=== PATIENT | female | born 1960 | race Caucasian/White ===

== ENCOUNTER 2025-02-23 00:12 | Inpatient (IN) | payer OTHER, SELFPAY ==
[2025-02-22] VITALS (19 sets, daily range): BP systolic 77–118; BP diastolic 53–97; BMI 24.9
[2025-02-22 17:04] LABS: Hematocrit 29.3 % (37.0-47.0); Hemoglobin 9.0 g/dL (12.0-16.0); Mean Corp Hgb Conc. 30.7 g/dL (33.0-37.0); Mean Corpuscular Volume 86.4 fL (81.0-99.0); Nucleated Red Blood Cells % 0 %; Platelet Count 227 10^3/uL (130-400); Red Cell Dist. Width 18.1 % (11.5-14.5)
[2025-02-22 17:29] LABS: Troponin I < 0.012 ng/ml
[2025-02-22 17:57] LABS: ALT (SGPT) 22 U/L (0-35); AST (SGOT) 15 U/L (14-36); Albumin 3.1 g/dl (3.5-5.0); Alkaline Phosphatase 54 U/L (38-126); Blood Urea Nitrogen 14 mg/dl (7-17); Calcium 8.5 mg/dl (8.4-10.2); Carbon Dioxide 36 mmol/L (22-30); Chloride 98 mmol/L (98-107); Glucose 91 mg/dl (70-99); Potassium 3.8 mmol/L (3.5-5.1); Sodium 137 mmol/L (135-145); Total Protein 5.5 g/dl (6.3-8.2); eGFR > 60.00
--- NOTE | 2025-02-22 19:39 | ED.GENMED ---
History of Present Illness
General
Chief Complaint: Swelling
Source: patient and family (Daughter)
Time Seen by Provider: 02/22/25 18:59
History of Present Illness
History of Present Illness:
64-year-old female presents to the emergency room at the advice of Dr. Alexis from [place] [facility]. Patient was at Dr. Alexis's office today for an evaluation to see if she be a candidate for an ablation for atrial fibrillation.
Patient has been feeling poorly for the past 6 months or so when she first developed atrial fibrillation. She was cardioverted once but remained in sinus rhythm for only an hour and so has basically remained in A-fib. Patient is compliant with her
anticoagulation. Patient has had several admissions at [facility] over this time. She has been developing peripheral edema. She has been treated for heart failure. She was most recently discharged from [address] [place] [address] yesterday. During that
admission she was started on digoxin as well as Aldactone. She does use oxygen at home at 3 L. Patient does have a significant history of COPD as well. She has not had a fever. She denies any change to her cough. She denies any urinary symptoms
such as dysuria or frequency.
Phy Exam
Physical Exam
Physical Exam:
General: Awake, Alert, Oriented X3. Appears chronically ill but does not appear to be in any acute distress
Vitals: Tachycardic, hypotensive
Head: Atraumatic
Eyes: Pupils equal, EOMI
Throat: Airway intact, no exudates
Neck: Trachea midline
Lungs: Crackles bilaterally
Heart: Regular rate, no murmurs
Abd: Soft, Nontender, No pulsatile mass
Neuro: Nonfocal
Skin: Warm, dry, no rash
Extremities: pulses equal b/l, 3+ edema
Scores
Heart Failure Risk
Heart Failure Risk Score: Yes
History of Stroke or TIA: No
History of intubation for respiratory distress: No
Heart rate on ED arrival >/= 110: Yes
SaO2 <90% on arrival on room air: Yes
HR >/=110 during 3min walk test (or too ill to perform test): Yes
ECG has acute ischemic changes: No
Urea >/=12mmol/L (BUN 33.6mg/dL): No
Serum CO2>/=35mmol/L: Yes
Troponin I or T elevated to VA Level (0.4mg/dL): No
NT-proBNP >/=5,000ng/L (5,000pg/ml): Yes
HF Risk Score: 6
Admission Status: VERY HIGH RISK 55.3% Consider admission to hospital
Course
Orders/Labs/Results
Orders:
Orders
02/22/25 16:40
EKG [Electrocardiogram (*1)] Urgent
Reason for Study: Shortness of Breath
02/22/25 16:41
EKG- Treatment ONCE
02/22/25 16:51
Complete Blood Count/With Diff Urgent
Comprehensive Metabolic Panel Urgent
Digoxin Urgent
Comment: ADD ON
Ferritin Urgent
Folate Urgent
Comment: ADDON
Iron Urgent
Comment: ADD ON
NT-proBNP Urgent
Total Iron Binding Urgent
Troponin I Urgent
Vitamin B12 Urgent
02/22/25 19:37
Add On- LAB Urgent
Tests Added?: digoxin level
02/22/25 19:38
CR Chest Portable - 1 View Urgent
Comment:
Reason For Exam: sob, hypotensive
Reason Study Needs to be Portable: Patient Unstable
02/22/25 19:58
CT Abd/pelvis W Iv Cont Urgent
Comment:
Reason For Exam: abd distension, hypotension
02/22/25 20:37
Furosemide [Lasix] 20 mg IV NOW STA
02/22/25 22:24
NG Tube [GI tube insertion- Treatment] ONCE
02/22/25 22:31
Midazolam HCl [Versed] 2 mg IV NOW STA
02/22/25 22:59
Lidocaine 2% [Lidocaine Uro-Jet 2%] 1 syringe .ROUTE .STK-MED ONE
02/22/25 23:51
Digoxin [Lanoxin] 250 mcg IV NOW STA
02/23/25 00:02
Add On- LAB Routine
Tests Added?: iron, ferritin, tibc, folate, vit b12
Admit/Transfer Patient As Directed
Co-Sign Provider:
Level of Care: Inpatient admission
Assign to:: IMU- Intermediate Care
Physician / Group: Oscar
Diagnosis: CHF, A-Fib, GOO
Reason for Hospitalization: NG Tube, A-Fib management
Expected length of stay greater than two midnights?: Yes
ELOS- Estimated Length of Stay in days: 3
I certify the patient meets the requirements for IP care: Yes
PRN Pain Medication Management As Directed
May give lesser potent ordered pain med per pt: Yes
preference::
Protocol:: Medication orders for pain may be administered in a
manner that supports deferring to patient preference
when the pt is:
- Requesting an ordered lesser potent pain medication.
Least to most potent pain medications are defined
as: acetaminophen < NSAID < tramadol < opioids
(morphine, oxycodone, hydromorphone).
- Requesting a lesser dose of the same medication IF
ORDERED.
- Requesting a less intrusive route of administration
if both routes are prescribed by the provider (PO <
IV).
02/23/25 00:03
Code Status As Directed
Resuscitation Status: Full Code
02/23/25 01:25
Acetaminophen [Tylenol/Feverall] 650 mg RECTAL Q4HPRN PRN
HYDROmorphone [Dilaudid] 0.25 mg IV Q3HPRN PRN
02/23/25 01:25
CARDIOLOGY CONSULT Routine
Consulting Provider: John Wilson
Was physician already notified: Yes
Consult Notification Routine
Specialty to Notify: Gastroenterology
GASTROINTESTINAL CONSULT Routine
Consulting Provider: Steff Fischer
Was physician already notified: No
Reason for consult: Gastric Outlet Obstuction, Gastric/Duodenal Mass
SURGICAL CONSULT Routine
Consulting Provider: Matthew Sotomayor
Was physician already notified: Yes
Activity As Directed
Activity Level: Out of Bed-Early Mobility
With Assistance
Gastrointestinal Tubes As Directed
Type: [place] sump
To suction?: Yes
Type of suction: Low intermittent
Irrigate tube?: No
I&O [Intake/ Output] As Directed
Frequency: q12h
Obtain Records As Directed
Dates of Information to be Released: Jan 2025
Type of Information Requested: Discharge Summary
ECG/Cardiology Results
If Other, list type of info requested: Echocardiogram
Obtain Records from: [facility]
Vital Signs As Directed
Frequency: Per unit guidelines
Weight As Directed
Frequency: Daily
DX Deep Vein Thrombosis Video Routine
02/23/25 Breakfast
NPO
Allow oral meds: No
Allow clear liquids: No
NPO with Ice Chips: Yes
Comment: OK to give oral disintegrating tablet
Basic Metabolic Panel IN AM
Complete Blood Count/No Diff IN AM
Magnesium IN AM
TSH Reflex To Free T4 IN AM
02/23/25 08:00
Risperidone Disintegrating [Risperdal M-Tab (Orally Disintegrating)] 0.5 mg PO BID
02/23/25 12:00
Digoxin [Lanoxin] 125 mcg IV NOON
02/23/25 18:00
Enoxaparin Sodium [Lovenox] 40 mg SC QPM
Abnormal Lab Results
02/22/25
16:51
RBC 3.39 L 10^6/uL
(4.20-5.40)
Hgb 9.0 L g/dL
(12.0-16.0)
Hct 29.3 L %
(37.0-47.0)
MCH 26.5 L pg
(27.0-31.0)
MCHC 30.7 L g/dL
(33.0-37.0)
RDW 18.1 H %
(11.5-14.5)
Abs Immat Gran (auto) 0.2 H 10^3/uL
(0-0.05)
Absolute Monos (auto) 1.4 H 10^3/uL
(0.1-0.6)
Immature Gran % 2.0 H %
(0-0.5)
Lymphocytes % 17.6 L %
(20.5-51.1)
Monocytes % 15.2 H %
(1.7-9.3)
Carbon Dioxide 36 H mmol/L
(22-30)
Iron 35 L ug/dl
(37-170)
% Saturation 9 L %
(20-50)
Total Bilirubin 0.1 L mg/dl
(0.2-1.3)
Total Protein 5.5 L g/dl
(6.3-8.2)
Albumin 3.1 L g/dl
(3.5-5.0)
Digoxin 0.4 L ng/ml
(0.8-2.0)
02/22/25 16:51
02/22/25 16:51
Vital Signs
Initial and Last Documented VS:
Initial Vital Signs
Temp Pulse Resp BP Pulse Ox
98.3 F 122 20 86/68 96
02/22/25 16:29 02/22/25 16:29 02/22/25 16:29 02/22/25 16:29 02/22/25 16:29
Last Documented Vital Signs
Temp Pulse Resp BP Pulse Ox
98.3 F 103 20 87/73 97
02/22/25 16:29 02/23/25 00:45 02/23/25 00:45 02/23/25 00:45 02/23/25 00:45
MDM/Problems Addressed
Differential Diagnosis Includes:
Exacerbation of heart failure, anemia, electrolyte abnormality, intravascular depletion
MDM/Problems Addressed:
Patient sent to the emergency room for low blood pressure. Clinically she looks more fluid overloaded. Noted to have crackles and has significant peripheral edema however no to be relatively hypotensive. Systolics low but her maps have mostly
been above 65. No echo available at this time. From a cardiology standpoint I discussed the patient's presentation with Dr. Griselda Wilson. He recommends low-dose IV Lasix. They will see the patient in the morning and evaluate a medication
modifications. On chest x-ray the patient noted to have a markedly dilated stomach. CT obtained to further evaluate this. CT shows severely distended stomach with suspicion of a mass at the antrum or first portion of the duodenum. Communicated
with Dr. Ale burrows who is on-call for general surgery. He recommends NG tube. This was placed with return of 450 cc of material. Patient will be admitted for further evaluation of all the above.
*Radiology
Radiology exam reviewed: preliminary read by ED provider (My interpretation of the patient's portable chest x-ray is no significant lung disease, significant gastric distention) and radiology read reviewed
*Pulse Oximetry
SaO2: 95
Nasal Cannula flow liters per minute: 3
Patient hypoxic: yes
*EKG
Interpreted by ED Provider?: Yes
Interpretation: normal
Heart Rate: 95
Rate: normal
Rhythm: atrial flutter
Economy: normal axis
Interval: normal interval
QRS Pattern: normal QRS
Ischemia: non-specific ST changes
*[employer] Operator Interpretation
Rate: normal
Interpretation: abnormal
Rhythm: atrial flutter
*Critical Care Note
Total Time (30-74mins, 75-104mins- exclusive of procedures): 44 min
comment:
Critical care statement: A total of 44 minutes of critical care time was provided for this patient. This includes management of unstable vital signs, evaluation of the patient at bedside, reviewing the patient's pertinent medical records, discussion
with consultants, review of old EKGs and review of pertinent medical records. This time with separate from time utilized to perform the aforementioned documented procedures
ED Attending Note
-
Portions of this chart may have been created with voice recognition software.� Occasional wrong word or��sound alike� substitutions may have occurred due to the inherent limitations of voice recognition software.
Discharge Plan
Departure
Patient Disposition: Admit
Date of Disposition: 02/22/25
Time of Disposition: 22:23
Admit to: IMU
Presentation/result/management discussed w/ accepting MD/DO: Hospitalist
Condition: Fair
Discharge Problem:
CHF (congestive heart failure), Partial gastric outlet obstruction
Interventions
Interventions:
*Risk Screen - Suicide Last Done: 02/22/25 16:29
*General Assessment Last Done: 02/22/25 16:29
*Neglect/Abuse Screening Last Done: 02/22/25 19:07
*ED COVID-19 Vaccine History Last Done: 02/22/25 16:29
*Nursing Disposition Last Done: 02/23/25 01:37
ED- Cardiac Assessment Last Done: 02/22/25 19:07
ED- Pulmonary Assessment Last Done: 02/22/25 19:07
ED-Skin Assessment Last Done: 02/22/25 19:07
[2025-02-22 20:14] LABS: Digoxin 0.4 ng/ml (0.8-2.0)
[2025-02-22] MEDS: LASIX 20 MG IV (21:24)
[2025-02-22] MEDS: VERSED 2 MG IV (22:47)
--- NOTE | 2025-02-22 23:47 | HPS.HSE ---
Addendum entered and electronically signed by Morris Moore DO 02/23/25 00:35:
Patient seen and examined independently. Agree with findings and plan as set forth by Jaci Young PA-C.
Patient is a 64y F with PMH significant for CHF, A-Fib / Flutter and COPD / chronic hypoxemia who presents to ED from Cardiology office (Dr. Bauer) for evaluation of decompensated CHF. Patient has been hospitalized multiple times at [facility] in the
past several weeks for decompensated HF. She has uncontrolled A-Fib / Flutter and was referred to EP at for evaluation given poor tolerance of A-Fib / recurrent CHF. Patient was discharged from [facility] yesterday and presented to Cardiology office
today. Upan arrival there, she was appreciated to be in decompensated HF and was referred to the ED for admission.
Patient has A-Fib / Flutter with variable heart rates from 100-130. Her BP is 'soft' in the 80s-90s systolic - which her sister states is fairly typical.
Patient has also had significant abdominal distention recently - and there was some concern that this might reflect ascites given her right-sided HF symptoms.
Ass:
Acute on Chronic HFpEF
Persistent Atrial Fibrillation / Flutter with Rapid Ventricular Response
Borderline Hypotension
COPD with Chronic Hypoxemic Respiratory Failure
Gastric Outlet Obstruction
Bipolar Disorder
Hypothyroidism
Plan:
Admit to IMU for further evaluation and treatment.
IV Lasix x 1 dose given in the ED.
IV Dig x 1 dose on admission. Continue digoxin daily via IV route for now.
Cardiology consulted for additional recommendations / management.
Obtain recent records (including Echo done yesterday) from [facility].
Holding all PO meds acutely given concurrent GI issues.
NG placed in the ED. Maintain on LIMS overnight.
Follow for improvement in abdominal distention.
CT done in the ED today shows dilated stomach and ? small mass along gastric antrum.
GI consulted for further evaluation - ? eventual EGD once cardiac issues are stabilized.
Continue supplemental O2 (3lpm at baseline).
Continue usual inhaled medications.
Original Note:
Family Physician
-
Family Physician: Praveena Hilliard
Chief Complaint
-
Heart Failure
History of Present Illness
Patient is a 64 y/o female past medical history of heart failure, atrial fibrillation/flutter, and COPD on home oxygen who was sent from the cardiology office for low blood pressure and volume overload. Patient was initially diagnosed with atrial
fibrillation about 6 months. She has felt unwell since that time. Attempts were made previously for cardioversion but patient quickly went back into atrial fibrillation. She was recently admitted to [facility] for acute heart failure, and
discharged yesterday to keep her previously scheduled appointment with Dr. Alexis from to discuss possible ablation. During the visit today patient was hypotensive with significant lower extremity edema and she was sent to the emergency
department for evaluation.
While is the ED patient was noted to have distended abdomen and CXR raised concern for gastric distention. Abd/Pelvis CT scan showed evidence of severe gastric distention with questionable mass.
Medical History
Past Medical History
Past Medical History: Reports Other
Additional Past Medical History:
Chronic HFpEF
Persistent Atrial Fibrillation
Chronic Hypoxic
COPD
Hypothyroidism
Bipolar Disorder
Past Surgical History: Reports Other
Additional Past Surgical History:
Bunionectomy
Social History
Tobacco: Former Smoker
Family History
Family History: Not pertinent
Allergies / Home Medications
Allergies reflects when Allergies were last updated in [employer].
Home Medications with original date entered in [employer]
Allergy/Medication List:
Allergies
Allergy/AdvReac Type Severity Reaction Status Date / Time
No Known Allergies Allergy Verified 02/22/25 16:39
Home Medications
apixaban 5 mg tablet (Eliquis) 5 mg PO BID 02/22/25
atorvastatin 10 mg tablet 10 mg PO Daily 02/22/25
cholecalciferol (vitamin D3) 50 mcg (2,000 unit) tablet 50 mcg PO DAILY 02/22/25
digoxin 125 mcg (0.125 mg) tablet 0.125 mg PO DAILY 02/22/25
diltiazem HCl 300 mg capsule,extended release 24 hr 300 mg PO DAILY 02/22/25
divalproex 500 mg tablet,delayed release 500 mg PO BID 02/22/25
dofetilide 250 mcg capsule 250 mcg PO Q12 02/22/25
furosemide 20 mg tablet 20 mg PO DAILY 02/22/25
levalbuterol tartrate 45 mcg/actuation aerosol inhaler 2 puff inhalation Q8HPRN PRN shortness of breath 02/22/25
levothyroxine 112 mcg tablet 112 mcg PO DAILY 02/22/25
metoprolol succinate 100 mg tablet,extended release 24 hr 100 mg PO BID 02/22/25
pantoprazole 40 mg tablet,delayed release 40 mg PO BID 02/22/25
polyethylene glycol 3350 17 gram/dose oral powder 17 g PO DAILYPRN PRN constipation 02/22/25
spironolactone 25 mg tablet 25 mg PO DAILY 02/22/25
umeclidinium 62.5 mcg-vilanterol 25 mcg/actuation powdr for inhalation 1 inh inhalation DAILY 02/22/25
Review of Systems
-
Unable to obtain full review of systems at this time due to: Acuity
History Source: Family
Physical Exam
Vital Signs
Vital Signs
Temp Pulse Resp BP Pulse Ox
98.3 F 130 28 91/72 93
02/22/25 16:29 02/22/25 23:00 02/22/25 23:00 02/22/25 23:00 02/22/25 23:00
Physical Exam
General: No Apparent Distress and Appears Chronically Ill
HEENT: Anicteric, Moist mucous membranes, Oxygen (Nasal Cannula) and Other (NG Tube in Place)
Respiratory: Decreased Breath Sounds (Poor Inspiratory Effort)
Cardiac: S1/S2, Irregular Rhythm and Tachycardia
GI: Tender (Mild throuhgout) and Distended
Rectal: Deferred by Provider
Genito-urinary: Clear Urine (Noted in canister at bedside)
Musculoskeletal: No Clubbing, No Cyanosis and Other (+3 pitting edema bilateral lower extremities)
Skin: Warm and Dry
Neuro: Cranial Nerves Intact and Sedated (Patient received Versed prior to my evaluation)
Laboratory Results
-
02/22/25 16:51
02/22/25 16:51
Laboratory Results
Total Bilirubin 0.1 mg/dl (0.2-1.3) L 02/22/25 16:51
AST 15 U/L (14-36) 02/22/25 16:51
ALT 22 U/L (0-35) 02/22/25 16:51
Alkaline Phosphatase 54 U/L (38-126) 02/22/25 16:51
Troponin I < 0.012 ng/ml 02/22/25 16:51
Data Reviewed
-
CT Scan: Report Reviewed by me
Lab Data: Labs Reviewed by me
Old Records: Requested
Impression/Plan
-
Acute on Chronic Heart Failure
-Consult Cardiology
-Attempt to obtain Echocardiogram result from [facility]
-Patient received one dose of Lasix in ED, but remains hypotension - Hold on further diuretics for now
-Monitor Is&Os and Daily Weights
Persistent Atrial Fibrillation with Rapid Ventricular Response
-Consult Cardiology
-Give digoxin 0.25mg IV x one dose Now
-Continue digoxin 0.125mg IV Daily
-Eliquis on hold with NG tube in place
Gastric Outlet Obstruction
-Abd/Pelvis CT scan raises concern for small mass along gastric antrum vs duodenum
-NGT placed in ED
-Continue NPO
-General Surgery consult by ED
-Consult GI
Chronic Hypoxia
-Continue supplemental oxygen at 3L via nasal cannula
COPD, no acute exacerbation
-Continue Anoro Ellipta
Bipolar Disorder
-Continue Risperdal oral disintegrating tablet
-Hold Depakote until able to resume oral meds
Hypothyroidism
-Continue levothyroxine
DVT proph: Lovenox until able to resume oral Eliquis
Code Status: Full Code
[2025-02-23] VITALS (33 sets, daily range): BP systolic 77–118; BP diastolic 61–89; BMI 24.0
[2025-02-23] MEDS: LANOXIN 250 MCG IV (00:16)
[2025-02-23 00:19] LABS: Iron 35 ug/dl (37-170)
[2025-02-23 00:29] LABS: Total Iron Binding Capacity 371 ug/dl (265-497)
[2025-02-23 01:07] LABS: Ferritin 18.3 ng/ml (11.1-264.0)
[2025-02-23 01:39] LABS: Folate > 20.0 ng/ml (2.76-20); Vitamin B12 423 pg/ml (239-931)
[2025-02-23 03:38] LABS: Hematocrit 29.0 % (37.0-47.0); Hemoglobin 9.2 g/dL (12.0-16.0); Mean Corp Hgb Conc. 31.7 g/dL (33.0-37.0); Mean Corpuscular Volume 88.1 fL (81.0-99.0); Platelet Count 226 10^3/uL (130-400); Red Cell Dist. Width 18.2 % (11.5-14.5)
[2025-02-23 04:08] LABS: Blood Urea Nitrogen 16 mg/dl (7-17); Calcium 8.5 mg/dl (8.4-10.2); Carbon Dioxide 36 mmol/L (22-30); Chloride 98 mmol/L (98-107); Estimated Creatinine Clearance 55 ml/min; Glucose 98 mg/dl (70-99); Magnesium 2.4 mg/dl (1.6-2.3); Potassium 4.0 mmol/L (3.5-5.1); Sodium 138 mmol/L (135-145); eGFR > 60.00
[2025-02-23] MEDS: LANOXIN 125 MCG IV ×2 (04:19→12:02)
--- NOTE | 2025-02-23 05:05 | PTCARENOTE ---
Received verbal report from COSME Diop. Pt arrived to unit via stretcher. afib on monitor, hr 90-110s at time of admission. SpO2 95% on 3L NC. Lungs diminished at the bases on auscultation and scattered crackles throughout. NGT in place to LIMS. PW
in place draining yellow urine. Pt afib w/ RVR, hr 110-140s. Pt asymptomatic. Vitals and assessment as documented. HEENA Peñaloza notified and Rx received for IV Digoxin (see MAR). Pt resting in bed with call greenberg in reach.
--- NOTE | 2025-02-23 05:22 | W.PN.UPDATE ---
Update Note
Progress Note Update
Patient is a- fib with Hr 130s to 140s, BP 95/72, asymptomatic. One time order of Digoxin 125mcg was given. Hr still sustainable 130s-140s, Cardiology regulatory affairs consultant contacted and new recommendation received of IV Lopressor 5mg.
[2025-02-23] MEDS: LOPRESSOR 5 MG IV ×2 (05:31→08:34)
--- NOTE | 2025-02-23 05:37 | PTCARENOTE ---
Pt afib on the monitor, hr sustaining 130-140s. COLLECTION ADVISOR notified and order received for IV Lopressor (see MAR).
--- NOTE | 2025-02-23 07:34 | W.PN.CARDCBS ---
Addendum entered and electronically signed by Kev Nye MD 02/23/25 10:28:
I saw and examined the patient.
The Fitting Room Maintenance Mechanic's note was reviewed and I agree with the note.
Comment: Briefly, 64-year-old woman past medical history of atrial fibrillation/flutter with rapid ventricular response and heart failure with preserved ejection fraction presents in rapid atrial flutter and acute heart failure
Plan to diurese with IV Lasix. Will increase to 40 mg twice daily.
Follow renal function closely
Ideally would have standing weights
Repeat echo here to reassess LV function
Remains in rapid atrial flutter. Marginal blood pressure limits options for rate control. Goal heart rate less than 110 bpm.
Continue home digoxin
Plan to start amiodarone for adjunct rate control following Tikosyn washout
Resume anticoagulation. Patient currently with NG tube for decompression. Will start heparin drip with transition back to home Eliquis once able to take oral meds.
Original Note:
Today's Communication / Plan
-
Lasix 20 mg IV x1 now
Tikosyn washout and then start amiodarone PO
If HRs difficult to control might need to add amiodarone gtt for adjunct rate control
Restart OAC pending surgical evaluation, patient had abd u/s and MRI at [facility] in the last month
Impression / Plan
-
PCP: Praveena Hilliard
Cardiology: Dr. Aguero
EP: Dr. Bauer
Impression:
Presented with A-fib/typical flutter and RVR and acute HF 02/22/2025
Recent admission to [facility] for acute HF and rapid A-fib, loaded with digoxin 02/20/2025 until 02/21/2025
Recent admission to [facility] for abdominal distention, A-fib and acute HF 02/07/2025 until 02/10/2025
Recent admission to [facility] for A-fib and acute HF, likely had COVID just prior to this admission and had also been started on Tikosyn prior to this admission, 01/25/25 until 01/27/25
Recent admission to [facility] for newly diagnosed A-fib and acute HF 12/08/2024 until 12/14/2024
Acute HFpEF
Paroxysmal atrial fibrillation and typical flutter with RVR
Abnormal CT abdomen suggesting small enhancing mass along the wall of the gastric antrum 02/22/2025
MRI abdomen at [facility] that showed dilated stomach without mention of enhancing lesions, small pancreatic cysts and no evidence of biliary dilatation or choledocholithiasis 02/08/2025
s/p MRCP that was negative for CBD stone at [facility] 01/2025
NGT placed in ER 02/22/25
Oxygen dependent COPD
Former smoker, quit 07/2024
COVID infection 11/2024
s/p thyroidectomy, hypothyroidism
h/o HTN
Hyperlipidemia
Bipolar disorder
Echo 12/08/2024: [facility] study, EF 60 to 65%, enlarged RV with moderately reduced systolic function, severe RA/LA dilatation, trivial to mild MR, severe TR with PAP 50 mmHg, no AAS
DANIEL 12/12/2024: [facility] study, EF 60 to 65%, severely enlarged RV, no evidence of DIANNA thrombus, mild MR, mild to moderate TR with PAP 21 mmHg
Plan:
-Patient came to [facility] ER yesterday with acute HF and cardiology is now consulted. Patient was being evaluated in the cardiology office in the [facility] yesterday, this was a new patient visit for EP consultation for persistent A-fib and
consideration of ablation. As noted above the patient has had 4 admissions to [facility] since November. It looks like patient was initially admitted to [facility] in November with A-fib as a new diagnosis and acute HF, patient had successful DANIEL/CV at that time, but
recurred with A-fib soon after. Patient was admitted to [facility] again at the end of December with recurrent A-fib and acute HF and on my review of [facility] records it appeared that in between her November admission and December admission she had COVID and was
started on Tikosyn, but still recurred with A-fib requiring admission 01/25/2025. Looks like patient was diuresed during that admission and was discharged to home on her usual dose of Tikosyn 250 mcg BID. Patient was admitted to [facility] again from
02/07/2025 until 02/10/2025 with chest pain that they treated as COPD and abdominal distention that led to MRI/MRCP of the abdomen that was negative for CBD stone and there is no mention of soft tissue masses in the stomach at that time, patient was
again diuresed and discharged to home. Patient was admitted to [facility] again 02/20/2025 until 02/21/2025 with recurrent A-fib and acute HF, during that admission they loaded her with digoxin and continued her usual dose of Tikosyn. It sounds as though
the patient was anxious for her outpatient EP evaluation and was discharged from the hospital 02/21/2025 and then came to our office at the [facility] on 02/22/2025 and acute HF and was referred to the ER.
-ECG reviewed by me looks like typical atrial flutter with RVR. Telemetry reviewed by me looks more like atrial fibrillation with RVR
-Patient has had at least 4 admissions to [facility] since November and now presents to [facility] for her 5th admission, but this is her first admission at our hospital. Her records in [facility] were reviewed in detail and summarized above by me.
-Patient has persistent A-fib/flutter with RVR likely contributing to acute HF which may be causing her abdominal distention as well.
-Patient was started on Tikosyn 11/2024, but this has been generally ineffective in maintaining SR and so this medication has been stopped, last dose 02/22/2025 AM. Following washout recommend starting amiodarone 400 mg TID.
-Overnight rate control efforts were relatively ineffective, patient was given digoxin 375 mcg IV on top of her outpatient dose of 125 mcg daily. Digoxin level 0.4 on 02/22/2025, labs reviewed by me.
-Patient then ordered Lopressor 5 mg IV PRN 02/03/2025 AM with minimal improvement in HR. May need to add amiodarone gtt for adjunct rate control.
-Outpatient dose of Eliquis 5 mg BID is on hold due to possible small enhancing mass along the gastric antrum seen on CT 02/22/2025, would like to resume OAC pending general surgery evaluation taking into consideration the other workup that patient
has had at [facility] over the last month for symptoms of abdominal distention. NGT in place since admission.
-Plan is for eventual rhythm control, but patient noted to have severe biatrial dilatation on last echo 12/08/2024.
-Patient examines in acute HF. Last echo I can find was from 12/08/2024 and EF was 60 to 65%, recheck echo today, ordered by me
-Weight is down 5 lbs overnight with Lasix 20 mg IV x 1. Patient was taking Lasix 20 mg PO daily prior to admission.
-Patient examined in volume overload and needs more diuresis, but is limited by hypotension. Lasix 20 mg IV x 1 now, ordered by me and pending diuretic response, echo and BP response will need to consider RHC. Patient had RHC at [facility] on 12/14/2024
and PCWP was 19 with CI 2.5.
-Right heart changes on echo could be due to underlying oxygen dependent COPD
Progress Note - Information Security Director
Subjective
Date of Service: February 23, 2025
Ongoing SOB
Objective
Labs:
02/23/25 03:06
02/23/25 03:06
Labs
Hgb 9.2 g/dL (12.0-16.0) L 02/23/25 03:06
Hct 29.0 % (37.0-47.0) L 02/23/25 03:06
Plt Count 226 10^3/uL (130-400) 02/23/25 03:06
Sodium 138 mmol/L (135-145) 02/23/25 03:06
Potassium 4.0 mmol/L (3.5-5.1) 02/23/25 03:06
BUN 16 mg/dl (7-17) 02/23/25 03:06
Creatinine 0.8 mg/dL (0.6-1.0) 02/23/25 03:06
Glucose 98 mg/dl (70-99) 02/23/25 03:06
Digoxin 0.4 ng/ml (0.8-2.0) L 02/22/25 16:51
Troponins
02/22/25
16:51
Troponin I < 0.012
Vital Signs and I&O:
Vital Signs
Temp Pulse Resp BP Pulse Ox
98.2 F 142 21 95/73 96
02/23/25 01:38 02/23/25 05:31 02/23/25 05:00 02/23/25 05:31 02/23/25 05:00
Vital Signs
Temp Pulse Resp BP Pulse Ox
98.2 F 142 21 95/73 96
02/23/25 01:38 02/23/25 05:31 02/23/25 05:00 02/23/25 05:31 02/23/25 05:00
Intake & Output
02/21/25 02/22/25 02/23/25 02/24/25
06:59 06:59 06:59 06:59
Intake Total 0 / 0
Output Total 1650 / 1650
Balance -1650 / -1650
Physical Exam
Physical Exam
GEN: NAD
HEENT: EOMI, MMM
LUNGS: 3 L NC. Decreased BS throughout without wheeze
CV: Afib with RVR on tele. Irreg, no murmur
ABD: Mildly distended. Soft, BS+
EXT: +3 B/L LE edema
NEURO: Gross non-focal
SKIN: No rash
[2025-02-23] MEDS: SPIRIVA RESPIMAT 2.5 MCG 2 PUFF INH (07:55)
[2025-02-23] MEDS: STRIVERDI RESPIMAT 2 PUFF INH (07:55)
[2025-02-23] MEDS: LASIX 20 MG IV (09:20)
[2025-02-23] MEDS: RISPERDAL M-TAB (ORALLY DISINTEGRATING) 0.5 MG PO ×2 (09:20→19:43)
--- NOTE | 2025-02-23 09:42 | CON.GI ---
Addendum entered and electronically signed by Steff Lopez Do, MD 02/23/25 16:03:
I saw and examined the patient.
The TECHNICAL PROJECT MANAGER's note was reviewed and I agree with the note.
Comment: Jessika is a 64yo W wtih h/o COPD on 2L home O2, CHF and bipolar who was sent to ER from cardiology office for concerns of heart failure and afib with RVR. GI consulted for abd distension and abnormal CT scan with possible GOO. She has
lost 30lbs over past year. She has some regurgitation and nausea. She denies nsaid use recently but did in the past. Vitals stable exam frail chronically ill appearing abd bloated no guarding. NGT without output. Labs reviewed CT AP and AXR
reviewed severe gastric distension and large fecal volume
Impression
- Gastric distension and GOO
ddx includes ulcer malignancy or severe motility dysfunction from stool burden
- GERD
- Iron def anemia
- COPD on 2L home oxygemn
- CHF
- Bipolar
- Hypothyroidism
Recommendations
- NGT monitor output
- Recommend IV protonix BID
- Serial H/H
- Hold lucila would benefit from EGD once washed out and more medically optimized
- Appreciate surgical and cardiology recs
- Ducolax supp x1 now
- Would also benefit from OP colonoscopy
Will follow with you
Original Note:
Consultation
-
Date/Time Consultation Requested: 02/23/25 0125
Date/Time Consultation Performed: 02/23/25 0940
Requesting Provider: Jaci Young PA-C
Performing Provider: HEENA Arango, Steff Fischer MD
Reason for Consultation: gastric outlet obstruction, possible gastric mass
Medical History
Chief Complaint / HPI
Chief Complaint: nausea.vomiting
History of Present Illness:
Pt is a 64yo with hx multiple medical problems including, afib/flutter newly diagnosed with newly started an DANIEL/CV, CHF, COPD with home O2, hypoxemia, bipolar disorder, overactive bladder, hypothyroidism, thyroidectomy, with recent prolonged
admissions at [facility]. Per patient she was admitted mid November til December with ICU admission with intubation, CHF, COPD exacerbation, afib (new), PNA, covid and psych med adjustment. Per cardiology noted she was noted with abdominal distention
and had MRI/MRCP during admission neg for stone and no mention of gastric mass but distention. She now presents 02/22 from cardiology office. On admission she is noted with concern for heart failure, afib with RVR with HR in 140-150's, and
hypoxemia. CT A/p was completed with moderate left lobe PNA, severe gastric distention with question of enhancing mass along gastric antrum vs duodenum t/c EGD vs UGI. Asked to see for findings. Labs on admission notable for hbg 9 with iron
deficiency (chronic per patient), albumin 3.1, normal LFT's, proBNP 5980, TSH 17.4 with normal T4.
In review with patient she admits to marked wt loss of over 30 lbs. She admits to dysphagia, GERD with vomiting variable amount over last 3 weeks mostly bilious material with food at times. She has diffuse abdominal bloating and pressure. She
also admits to diarrhea and constipation altenating with some blood and black in stools at times. No hx EGD and last colonoscopy 10 + years ago. She admits to chronic NSAID use for years but changed to Tylenol about 1 year ago.
Past Medical History
Past Medical History: Arrhythmias (afib), CHF, COPD, Hypothyroidism, Psychiatric (bipolar disorder ) and Other (hypoxemia, overactive bladder )
Past Surgical History: Other (bunionectomy, botox to bladder, thyroidectomy)
Social History
Tobacco: Former Smoker (quit in September )
Alcohol: Occasional
Drug: None
Living: Alone
Employment: Retired
Family History
Family History: Other (mother with gallbladder problems, no family hx GI cancers )
Allergies / Home Medications
Allergy/AdvReac Type Severity Reaction Status Date / Time
No Known Allergies Allergy Verified 02/22/25 16:39
�Medication �Instructions �Recorded
apixaban 5 mg tablet (Eliquis) 5 mg PO BID 02/22/25
atorvastatin 10 mg tablet 10 mg PO Daily 02/22/25
cholecalciferol (vitamin D3) 50 50 mcg PO DAILY 02/22/25
mcg (2,000 unit) tablet
digoxin 125 mcg (0.125 mg) tablet 0.125 mg PO DAILY 02/22/25
diltiazem HCl 300 mg 300 mg PO DAILY 02/22/25
capsule,extended release 24 hr
divalproex 500 mg tablet,delayed 500 mg PO BID 02/22/25
release
dofetilide 250 mcg capsule 250 mcg PO Q12 02/22/25
furosemide 20 mg tablet 20 mg PO DAILY 02/22/25
levalbuterol tartrate 45 2 puff inhalation Q8HPRN PRN 02/22/25
mcg/actuation aerosol inhaler shortness of breath
levothyroxine 112 mcg tablet 112 mcg PO DAILY 02/22/25
metoprolol succinate 100 mg 100 mg PO BID 02/22/25
tablet,extended release 24 hr
pantoprazole 40 mg tablet,delayed 40 mg PO BID 02/22/25
release
polyethylene glycol 3350 17 17 g PO DAILYPRN PRN constipation 02/22/25
gram/dose oral powder
spironolactone 25 mg tablet 25 mg PO DAILY 02/22/25
umeclidinium 62.5 mcg-vilanterol 1 inh inhalation DAILY 02/22/25
25 mcg/actuation powdr for
inhalation
risperidone 0.5 mg disintegrating 0.5 mg PO Q12H 02/23/25
tablet
Review of Systems
-
History Source: Patient
Constitutional: Reports Weight Loss and Fatigue
EENT: Reports No Symptoms
Respiratory: Reports Trouble Breathing
Cardiac: Reports Chest Pain
Abdomen/GI: Reports Abdominal Pain (with bloating )
: Reports No Symptoms
Musculoskeletal: Reports No Symptoms
Neurological: Reports Weakness
Endocrine: Reports No Symptoms
Hematologic/Lymphatic: Reports Bleeding
Vital Signs
Temp Pulse Resp BP Pulse Ox
98.2 F 138 26 118/80 97
02/23/25 01:38 02/23/25 09:20 02/23/25 08:24 02/23/25 09:20 02/23/25 08:24
Physical Exam
Exam
General: Other (awake and alert with some dyspnea at rest )
HEENT: Normocephalic and Anicteric
Respiratory: Other (decreased bases, dyspnea at rest )
Cardiac: Irregular Rhythm (tachy)
GI: Soft, Tender (minimal ) and Distended
Musculoskeletal: No Clubbing and No Cyanosis
Skin: Warm and Dry
Neuro: Awake, Alert and AO x 3
Psych: Calm
Results
WBC 9.6 10^3/uL (4.8-10.8) 02/23/25 03:06
Hgb 9.2 g/dL (12.0-16.0) L 02/23/25 03:06
Hct 29.0 % (37.0-47.0) L 02/23/25 03:06
MCV 88.1 fL (81.0-99.0) 02/23/25 03:06
Plt Count 226 10^3/uL (130-400) 02/23/25 03:06
Absolute Neuts (auto) 6.0 10^3/uL (1.4-6.5) 02/22/25 16:51
Sodium 138 mmol/L (135-145) 02/23/25 03:06
Potassium 4.0 mmol/L (3.5-5.1) 02/23/25 03:06
Chloride 98 mmol/L (98-107) 02/23/25 03:06
Carbon Dioxide 36 mmol/L (22-30) H 02/23/25 03:06
BUN 16 mg/dl (7-17) 02/23/25 03:06
Creatinine 0.8 mg/dL (0.6-1.0) 02/23/25 03:06
Calcium 8.5 mg/dl (8.4-10.2) 02/23/25 03:06
Total Bilirubin 0.1 mg/dl (0.2-1.3) L 02/22/25 16:51
AST 15 U/L (14-36) 02/22/25 16:51
ALT 22 U/L (0-35) 02/22/25 16:51
Alkaline Phosphatase 54 U/L (38-126) 02/22/25 16:51
Diagnostic Image Results:
02/22/25 CT Abd/pelvis W Iv Cont
Moderate left lower lobe consolidation and airspace disease concerning for pneumonia.
Severe gastric distention. Questionable small enhancing mass along the wall of the gastric antrum versus duodenum. This could further be evaluated by direct visualization or nonurgent upper GI examination.
Mild infrarenal abdominal aortic ectasia measuring 3 cm.
Mild diverticulosis.
Findings suggesting mild volume overload or third spacing.
Prior GI Procedures:
EGD: none
Colonoscopy: 10 years ago
Assessment / Plan
-
Pt is a 64yo with hx multiple medical problems including, afib/flutter newly diagnosed with newly started an DANIEL/CV, CHF, COPD with home O2, hypoxemia, bipolar disorder, overactive bladder, hypothyroidism thyroidectomy with recent prolonged
admissions at [facility]. Per patient she was admitted mid November til December with ICU admission with intubation, CHF, COPD exacerbation, afib (new), PNA, covid and psych med adjustment. Per cardiology noted she was noted with abdominal distention
and had MRI/MRCP during admission neg for stone and no mention of gastric mass but gastric distention . She now presents 02/22 from cardiology office. On admission she is noted with concern for heart failure, afib with RVR with HR in 140-150's,
and hypoxemia. CT A/p was completed with moderate left lobe PNA, severe gastric distention with question of enhancing mass along gastric antrum vs duodenum t/c EGD vs UGI. Asked to see for findings. Labs on admission notable for hbg 9 with iron
deficiency (chronic per patient), albumin 3.1, normal LFT's, proBNP 5980, TSH 17.4 with normal T4. In review with patient she admits to marked wt loss of over 30 lbs. She admits to dysphagia, GERD with vomiting variable amount over last 3 weeks
mostly bilious material with food at times. She has diffuse abdominal bloating and pressure. She also admits to diarrhea and constipation altenating with some blood and black in stools at times. No hx EGD and last colonoscopy 10 + years ago. She
admits to chronic NSAID use for years but changed to Tylenol about 1 year ago.
-abdominal distention with nausea/vomiting CT concern for marked severe gastric distention with question of enhancing mass along gastric antrum vs duodenum
-reported MRI 2 weeks ago with similar gastric distention at [facility]
-alternating diarrhea and constipation
-rectal bleeding red and blood in stools
-anemia with iron deficiency
-afib with RVR
-acute heart failure
-multiple recent admission at [facility] with with ICU admission with intubation, COPD exacerbation, CHF, afib (new), PNA, covid and psych med adjustment
other med problems:
COPD- O2 dependent
Former smoker recently quit
COVID infection 11/2024
s/p thyroidectomy, hypothyroidism TSH 17.4 and T4 normal 1.56
h/o HTN
Hyperlipidemia
Bipolar disorder
overactive bladder
PLAN:
Etiology of severe gastric distention with obstruction related to mass vs other
reviewed imaging with Dr. Mckenna with marked distention
will check follow up X ray for progression of contrast, will do at bedside as persistent HR 150's.
minimal stool in rectum and sigmoid so hold enema for now
t/c eventual UGI vs EGD-- when medically optimized
cont NGT decompression-- 450ml out in ER and minimal out since admission to floor
Eliquis hold and to start heparin gtt
trend hbg
IV iron
NPO
add PPI IV BID
await records from [facility]
appreciate cardiology eval for management of Afib and CHF with diuresis and rate control
pt will also need eventual OP colonoscopy
-
-
Thank you for consultation and allowing me to participate in the patient's care. Please call the occupational therapy supervisor GI physician during the after hours with any questions or concerns.
[2025-02-23] MEDS: HEPARIN 25000 UNITS/250 ML IV (10:06)
[2025-02-23 10:18] LABS: APTT 32.9 Sec (23.4-35.0)
--- NOTE | 2025-02-23 11:06 | CON.GS ---
Addendum entered and electronically signed by Vadim Mckenna MD 02/23/25 16:16:
I was physically present and personally performed the ku portions of the surgical evaluation and/or procedure with the resident. I discussed the findings, reviewed the resident�s note, and confirmed the medical decision-making. I provided direct
supervision as required and agree with the assessment and plan as documented with the following additions/corrections:
HPI: 64-year-old female with multiple medical comorbidities including A-fib on Eliquis, HFpEF, COPD on home oxygen, hypertension, hyperlipidemia, bipolar disorder and anxiety. History predominantly obtained through patient's sister as patient is
generally a poor historian with her medical details. She has apparently had 3 months history of intermittent belching, increased abdominal distention and occasional vomiting of brown liquid material. It has particularly progressed over the past
couple months. Milder symptoms have likely been present for even longer than 3 months. She has never gotten to the point of following up with a porcelain enameler. She has been in and out of the hospital at [facility] for predominantly heart
related issues.
Continues to pass flatus, she has had intermittent bowel movements on generally a regular basis. She states that she had a dark stool the other day that was different than previously.
Past medical history as outlined above. She has no past abdominal surgical history.
AF A-fib with RVR; low normal blood pressure
NAD AAO x 3 resting comfortably in hospital bed
ABD: Enlarged, protuberant and distended but not tense. Mild generalized tenderness but no rebound rigidity or guarding.
Tympany on percussion throughout.
NG tube in place, flushed, scant output
CT imaging personally reviewed and interpreted. Large distended stomach occupying significant portion of patient's abdominal cavity predominantly filled with what appears to be food-like material mixed with liquid. No pneumatosis of the stomach
lining. No free air. Transition point appears to be at level of pylorus.
Assessment/plan: 64-year-old female with gastric outlet obstruction resulting in severe gastric distention and possible enhancing mass noted at the junction of the pylorus/duodenal bulb.
NG tube decompression and bowel rest; there is little NG tube output is likely due to the thick consistency of gastric digested material.
Hopefully with continued flushing and time NG tube function for decompression will improve
Ultimately patient will need both further radiographic and endoscopic evaluations for etiology to gastric outlet obstruction which could include both benign as well as malignant etiologies
Discussed with patient
Discussed with patient's sister as well via speaker phone call
Reviewed with GI COMBAT SYSTEMS OPERATOR
Original Note:
Consultation
-
Date/Time Consultation Requested: 02/23/2025 1:25
Date/Time Consultation Performed: 02/23/2025 9:30
Requesting Provider: Jaci Young
Performing Provider: Vadim Mckenna
Reason for Consultation: Gastric distention due to obstructive mass
Medical History
-
Chief Complaint: Hypotension, Volume overload, gastric distention
History of Present Illness:
Patient is a 64-year-old female with a past medical history of paroxysmal atrial fibrillation on Eliquis, HFpEF, COPD on home oxygen, hypertension, hyperlipidemia, bipolar disorder, and anxiety, and a past surgical history of bunion removal, who
presented from for hypotension and volume overload noted during her cardiology appointment.
She has had multiple readmissions to [facility] since 12/08/2024, primarily for complications related to atrial fibrillation and acute decompensated heart failure. During her second most recent admission (02/07/202502/10/2025), abdominal distension
was noted and workup reportedly performed.
In the ED, she was again noted to have a distended abdomen. She reports 3 months of progressive belching and intermittent vomiting of brown, liquid material. Reportedly she has felt like �her insides were coming out between her legs�. She also
describes intermittent sharp pain localized to the left side of the abdomen, lasting from 20 minutes to up to a day. Alternating constipation and diarrhea also noted. She denies GERD symptoms, though her sister notes of patient�s frequent use of
Protonix and antacids. She denies fever, shortness of breath, or chest pain. Last bowel movement was yesterday.
CT abdomen/pelvis showed severe gastric distension with stomach filled with fluid and presumed food material. Enhancing mass noted along the gastric antrum or duodenal bulb.
Past Medical History
Past Medical History: Arrhythmias (Paroxysmal Atrial Fibrillation), CHF (HFpEF), COPD (on home oxygen therapy), HTN, Hypercholesterolemia and Other (Chronic Bipolar Disorder, Anxiety)
Past Surgical History: Orthopedic (Bunion removal)
Social History
Tobacco: Former Smoker
Alcohol: Occasional
Drug: None
Personal:
Living: Alone
Employment: Retired
Family History
Family History: Other (Gallstones issues, GERD)
Allergies / Home Medications
Allergy/AdvReac Type Severity Reaction Status Date / Time
No Known Allergies Allergy Verified 02/22/25 16:39
�Medication �Instructions �Recorded �Confirmed �Type
apixaban 5 mg tablet (Eliquis) 5 mg PO BID 02/22/25 02/22/25 History
atorvastatin 10 mg tablet 10 mg PO Daily 02/22/25 02/22/25 History
cholecalciferol (vitamin D3) 50 50 mcg PO DAILY 02/22/25 02/22/25 History
mcg (2,000 unit) tablet
digoxin 125 mcg (0.125 mg) tablet 0.125 mg PO DAILY 02/22/25 02/22/25 History
diltiazem HCl 300 mg 300 mg PO DAILY 02/22/25 02/22/25 History
capsule,extended release 24 hr
divalproex 500 mg tablet,delayed 500 mg PO BID 02/22/25 02/22/25 History
release
dofetilide 250 mcg capsule 250 mcg PO Q12 02/22/25 02/22/25 History
furosemide 20 mg tablet 20 mg PO DAILY 02/22/25 02/22/25 History
levalbuterol tartrate 45 2 puff inhalation Q8HPRN PRN 02/22/25 02/22/25 History
mcg/actuation aerosol inhaler shortness of breath
levothyroxine 112 mcg tablet 112 mcg PO DAILY 02/22/25 02/22/25 History
metoprolol succinate 100 mg 100 mg PO BID 02/22/25 02/22/25 History
tablet,extended release 24 hr
pantoprazole 40 mg tablet,delayed 40 mg PO BID 02/22/25 02/22/25 History
release
polyethylene glycol 3350 17 17 g PO DAILYPRN PRN constipation 02/22/25 02/22/25 History
gram/dose oral powder
spironolactone 25 mg tablet 25 mg PO DAILY 02/22/25 02/22/25 History
umeclidinium 62.5 mcg-vilanterol 1 inh inhalation DAILY 02/22/25 02/22/25 History
25 mcg/actuation powdr for
inhalation
risperidone 0.5 mg disintegrating 0.5 mg PO Q12H 02/23/25 02/23/25 History
tablet
Review of Systems
-
History Source: Patient
A 10 point review of systems was completed, and was negative except as per HPI.
Physical Exam
Vital Signs
Temp Pulse Resp BP Pulse Ox
98.2 F 138 26 118/80 97
02/23/25 01:38 02/23/25 09:20 02/23/25 08:24 02/23/25 09:20 02/23/25 08:24
02/22/25 02/23/25 02/24/25
06:59 06:59 06:59
Actual Weight 59.5 kg
Body Mass Index (BMI) 24.0
Lab Results
02/23/25 03:06
02/23/25 03:06
WBC 9.6 10^3/uL (4.8-10.8) 02/23/25 03:06
Hgb 9.2 g/dL (12.0-16.0) L 02/23/25 03:06
Hct 29.0 % (37.0-47.0) L 02/23/25 03:06
Plt Count 226 10^3/uL (130-400) 02/23/25 03:06
Abs Immat Gran (auto) 0.2 10^3/uL (0-0.05) H 02/22/25 16:51
Neutrophils % 63.5 % (42.2-75.2) 02/22/25 16:51
Physical Exam
General: No Apparent Distress
HEENT: Other (attached to NGT and nasal cannula)
Respiratory: Other (Bibasalar crackles)
Cardiac: S1/S2, Irregular Rhythm and Other (Tachycardic)
GI: Tender (LUQ), Distended and Other (Firm, Tympanic)
Skin: Warm
Neuro: AO x 3
Psych: Calm
Data Reviewed
-
CT Scan: Image Personally Visualized and interpreted (by attending surgeon), Report Reviewed by me (and by attending surgeon) and Discussed with Patient (by attending surgeon)
Assessment / Plan
-
Impression:
#Gastric Distention secondary to obstructive mass
Given the patient�s massive gastric distension with an as-yet unidentified cause of obstruction, gastric decompression and further gastrointestinal evaluation needed before considering surgical intervention. At this time, immediate surgery does not
appear to be warranted, thus will hopefully give time for patient's clinical status to improve in the mean time.
-Continue NGT decompression
-pending GI evaluation
-DVT prophylaxis: Heparin
-PPI
-pain management
-medical management per primary care team
[2025-02-23] MEDS: NSS (PRESERVATIVE FREE) 10 ML IV ×2 (12:05→19:43)
[2025-02-23] MEDS: PROTONIX IV 40 MG IV ×2 (12:05→19:43)
--- NOTE | 2025-02-23 12:12 | CM ---
Initial Assessment Completed by JEFFERY Bro.
Patient lives alone in at [facility] with all amenities on one level. Patient uses NO DME, has Oxygen at home using 3 liters (since Dec 2024) as well as a Concentrator and portable oxygen through [employer].
Patient is currently with [facility] now to monitor her CHF, was hospitalized 2x in the last few weeks so services were limited, but would like to continue when she goes home. JEFFERY Bro will make the Home Care referral to them.
PCP: Praveena Gutierrez
[facility] (#[phone])
Patient has her sister on the phone who is very involved in her care and who will provide transportation for the patient. Patient is here for CHF & Afib plus has a NG tube for now.
PLAN: Home with Home Care
[2025-02-23] MEDS: LOPRESSOR 2.5 MG IV ×2 (12:35→16:15)
[2025-02-23] MEDS: CORDARONE 518 MG IV (12:53)
--- NOTE | 2025-02-23 13:14 | W.PN.HOSP.TC ---
Today's Communication/Plan
-
Continue with IV Lasix
IV amiodarone started
Anticoagulation with heparin infusion
Abdominal imaging
Assessment / Plan
Assessment / Plan
Acute on Chronic HFpEF
-Status post 20 mg of IV Lasix earlier today. Still 1 L of urinary output
-Monitor Is&Os and Daily Weights
-Agree with Lasix 40 mg twice daily. Requested nursing monitoring.
-Monitor blood pressure closely. Surrounding soft blood pressure at times. May require pressure support.
-Monitor creatinine closely. Elevated proBNP noted.
Paroxysmal atrial fibrillation with rapid ventricular response
- Patient received IV Lopressor and IV digoxin overnight without any improvement in heart rate.
- Plan to start patient on IV amiodarone infusion
- Continue digoxin 0.125mg IV Daily. Digoxin level 0.4.
- Started on IV heparin as Eliquis remains on hold.
Gastric Outlet Obstruction
-Abd/Pelvis CT scan raises concern for small mass along gastric antrum vs duodenum
-NGT placed in ED
-Continue NPO
-Monitor NG tube output. Repeat abdominal x-ray today.
-Start PPI
-Consult GI/surgery
Chronic Hypoxia
-Continue supplemental oxygen at 3L via nasal cannula
COPD, no acute exacerbation
-Continue Anoro Ellipta
Bipolar Disorder
-Continue Risperdal oral disintegrating tablet if possible
-Hold Depakote until able to resume oral meds
Sub clinical hypothyroidism
Status post thyroidectomy
- Once able to take p.o. may need to adjust Synthroid dose
Iron deficiency anemia
- IV iron started
DVT proph: IV heparin
Code Status: Full Code
Anticipated Discharge: > 48 hours
Subjective/Interval History
-
Date of Service: February 23, 2025
Denies any abdominal pain or discomfort currently
Remains in atrial fibrillation with rapid ventricular response
States of lower extremity edema
He denies any chest pain no palpitations currently
States she was able to eat up until yesterday without any difficulty.
States she had a dark-colored bowel movement yesterday
Objective Data
-
Labs:
Laboratory Results
02/23/25 02/23/25 02/23/25
03:06 09:55 16:05
WBC 9.6
Hgb 9.2 L
Hct 29.0 L
Plt Count 226
APTT 32.9 Pending
Sodium 138
Potassium 4.0
Chloride 98
Carbon Dioxide 36 H
BUN 16
Creatinine 0.8
Glucose 98
Calcium 8.5
Vital Signs:
Vital Signs
Temp Pulse Resp BP Pulse Ox
98.2 F 145 23 108/82 97
02/23/25 01:38 02/23/25 12:35 02/23/25 11:00 02/23/25 12:35 02/23/25 11:00
I&O
02/22/25 02/23/25 02/24/25
06:59 06:59 06:59
Intake Total 0 / 0
Output Total 1650 / 1650 1750 / 1750
Balance -1650 / -1650 -1750 / -1750
Physical Exam
-
General: No Apparent Distress and Conversant; Negative Slurred Speech
HEENT: Normocephalic, Atraumatic, Moist Mucous Membranes and Oxygen
Respiratory: Clear to Auscultation (Anterior)
Cardiac: S1/S2, Irregular Rhythm and Tachycardic; Negative Murmur, Rub or Gallop
GI: Soft, Nontender, Normal Bowel Sounds, Distended and Other (NG tube noted); Negative Organomegaly
Rectal: Deferred by Provider
Musculoskeletal: No Clubbing, No Cyanosis, Edema, Right Lower Extrem and Edema, Left Lower Extrem
Skin: Negative Rash
Neuro: Awake, AO x 3, No Motor Deficits and Nonfocal/Grossly Intact
Psych: Calm
Data Reviewed
-
Total Time Spent with Patient (in minutes): 55
[2025-02-23] MEDS: LASIX 40 MG IV (15:29)
[2025-02-23] MEDS: FERRLECIT 110 MG IV (15:29)
[2025-02-23] MEDS: DULCOLAX 10 MG RECTAL (16:17)
[2025-02-23 16:55] LABS: APTT 67.4 Sec (23.4-35.0)
--- NOTE | 2025-02-23 17:59 | PTCARENOTE ---
Patient AAOx3, forgetful when anxious. Call greenberg on for safety. NGT patent and to LIS per orders. HR sustaining afib 140-150 most of shift, MDs aware, amio gtt started today, See PRNs and MAR for rate control efforts. BPs soft but stable. 3L NC,
sats 97%. Patient with 2BMs, brown with small red streak, GI and surgery team aware. Heparin gtt started today. Patient c/o anxiety at times, notified and awaiting home ativan to be ordered. Patient making needs known. Will continue to closely
monitor.
[2025-02-23] MEDS: TYLENOL/FEVERALL 650 MG RECTAL (19:57)
[2025-02-23] MEDS: VALIUM INJECTION 1 MG IV (19:57)
[2025-02-23 20:06] LABS: Hepatitis C Antibody Negative (Negative)
[2025-02-23 23:29] LABS: APTT 97.6 Sec (23.4-35.0)
[2025-02-24] VITALS (25 sets, daily range): BP systolic 76–118; BP diastolic 60–96; BMI 21.6
[2025-02-24] MEDS: LANOXIN 125 MCG IV ×2 (01:31→12:04)
--- NOTE | 2025-02-24 01:36 | PTCARENOTE ---
Patient remains in afib 120s-160s. Amio gtt infusing with soft bps 76/62 with map of 60. Amio gtt placed on hold per order parameters and telephone sex worker provider made aware. 1x dose of digoxin ordered and administered and ok to continue amio gtt with maps
above 65. If maps drop then order will be placed for pressor. Will continue to monitor.
--- NOTE | 2025-02-24 04:30 | W.PN.UPDATE ---
Update Note
Progress Note Update
HR continues 120-160 atrial fibrillation with amiodorone infusion. Dose of Digoxin 125 mcg IV given. She momentarily dropped to 80s but rebounded back to higher rate. BP 90/60. Heparin infusion continues. NG tube flushes easily output minimal clear
fluid.
[2025-02-24 05:41] LABS: APTT 59.3 Sec (23.4-35.0)
[2025-02-24 06:01] LABS: ALT (SGPT) 17 U/L (0-35); AST (SGOT) 16 U/L (14-36); Albumin 3.0 g/dl (3.5-5.0); Alkaline Phosphatase 51 U/L (38-126); Blood Urea Nitrogen 14 mg/dl (7-17); Calcium 7.9 mg/dl (8.4-10.2); Carbon Dioxide 32 mmol/L (22-30); Chloride 98 mmol/L (98-107); Estimated Creatinine Clearance 63 ml/min; Glucose 93 mg/dl (70-99); Magnesium 2.4 mg/dl (1.6-2.3); Potassium 4.1 mmol/L (3.5-5.1); Sodium 134 mmol/L (135-145); Total Protein 5.5 g/dl (6.3-8.2); eGFR > 60.00
--- NOTE | 2025-02-24 06:24 | PTCARENOTE ---
Patient remains in afib with rates 120s-160s. After administration of digoxin x1 heart rate dropped to the 80s and went back into the high rate. BPs soft at times but maps remained above 65. Continues on amio and heparin gtt. NGT to LIWS with 100
clear output. Hypoactive bowel sounds but abdomen less distended per patient. Patient had a small formed hard bowel movement on the commode. No nausea/ vomiting. Patient anxious to get NGT out so she could eat again. Emotional support provided. Will
continue to monitor.
[2025-02-24] MEDS: STRIVERDI RESPIMAT 2 PUFF INH (08:03)
[2025-02-24] MEDS: SPIRIVA RESPIMAT 2.5 MCG 2 PUFF INH (08:03)
[2025-02-24] MEDS: LASIX 40 MG IV (08:06)
[2025-02-24] MEDS: RISPERDAL M-TAB (ORALLY DISINTEGRATING) 0.5 MG PO ×2 (08:06→19:25)
[2025-02-24] MEDS: PROTONIX IV 40 MG IV ×2 (08:07→19:25)
[2025-02-24] MEDS: NSS (PRESERVATIVE FREE) 10 ML IV ×2 (08:07→19:25)
--- NOTE | 2025-02-24 10:03 | W.PN.GI.CBS2 ---
Today's Communication / Plan
-
Plan for upper GI with small bowel follow-through
MOM enema today
Assessment / Plan
-
Pt is a 64yo with hx multiple medical problems including, afib/flutter newly diagnosed with newly started an DANIEL/CV, CHF, COPD with home O2, hypoxemia, bipolar disorder, overactive bladder, hypothyroidism thyroidectomy with recent prolonged
admissions at [facility]. Per patient she was admitted mid November til December with ICU admission with intubation, CHF, COPD exacerbation, afib (new), PNA, covid and psych med adjustment. Per cardiology noted she was noted with abdominal distention
and had MRI/MRCP during admission neg for stone and no mention of gastric mass but gastric distention . She now presents 02/22 from cardiology office. On admission she is noted with concern for heart failure, afib with RVR with HR in 140-150's,
and hypoxemia. CT A/p was completed with moderate left lobe PNA, severe gastric distention with question of enhancing mass along gastric antrum vs duodenum t/c EGD vs UGI. Asked to see for findings. Labs on admission notable for hbg 9 with iron
deficiency (chronic per patient), albumin 3.1, normal LFT's, proBNP 5980, TSH 17.4 with normal T4. In review with patient she admits to marked wt loss of over 30 lbs. She admits to dysphagia, GERD with vomiting variable amount over last 3 weeks
mostly bilious material with food at times. She has diffuse abdominal bloating and pressure. She also admits to diarrhea and constipation altenating with some blood and black in stools at times. No hx EGD and last colonoscopy 10 + years ago. She
admits to chronic NSAID use for years but changed to Tylenol about 1 year ago.
-abdominal distention with nausea/vomiting CT concern for marked severe gastric distention with question of enhancing mass along gastric antrum vs duodenum
-reported MRI 2 weeks ago with similar gastric distention at [facility]
-alternating diarrhea and constipation
-rectal bleeding red and blood in stools
-anemia with iron deficiency
-afib with RVR
-acute heart failure
-multiple recent admission at [facility] with with ICU admission with intubation, COPD exacerbation, CHF, afib (new), PNA, covid and psych med adjustment
other med problems:
COPD- O2 dependent
Former smoker recently quit
COVID infection 11/2024
s/p thyroidectomy, hypothyroidism TSH 17.4 and T4 normal 1.56
h/o HTN
Hyperlipidemia
Bipolar disorder
overactive bladder
PLAN:
Etiology of severe gastric distention with obstruction/GOO most likely related to possible mass as noted on CT in the gastric antrum or duodenum versus PUD. Findings concerning for possible neoplasm given that she also had 30 pound weight loss
recently and also has iron deficiency anemia
Heart rates are still elevated and she was started on amiodarone also and is still on heparin and may not be stable for EGD yet
Discussed with surgery will get an upper GI with contrast through the NG tube
abdominal pain and distention have improved status post NG tube drainage, no further drainage through the NG after flushing, may need to be advanced the tip of the NG seems to be in the fundus
Continue PPI twice daily
Continue IV iron infusions
Continue heparin for now since she has no evidence of GI bleed
She also has constipation noted on x-ray which may be making her obstruction worse will give her milk of molasses enema and when able to tolerate p.o. can start MiraLAX
Subjective
Subjective
Date of Service: February 24, 2025
NG tube with minimal drainage but x-ray from yesterday also shows the tip of the NG tube coiled in the fundus, looks like she also had a small BM today. She says her abdominal pain though has markedly improved. Also noted events she was also
having tachycardia with rapid A-fib and was started on amiodarone also
Objective
Data Reviewed
Laboratory Data:
Laboratory Results
02/24/25 05:18
Laboratory Results
APTT 59.3 Sec (23.4-35.0) H 02/24/25 05:18
Phosphorus 4.1 mg/dl (2.5-4.5) 02/24/25 05:18
Magnesium 2.4 mg/dl (1.6-2.3) H 02/24/25 05:18
Total Bilirubin 0.5 mg/dl (0.2-1.3) 02/24/25 05:18
AST 16 U/L (14-36) 02/24/25 05:18
ALT 17 U/L (0-35) 02/24/25 05:18
Alkaline Phosphatase 51 U/L (38-126) 02/24/25 05:18
Vital Signs and I&O:
Vital Signs
Temp Pulse Resp BP Pulse Ox
98.4 F 145 26 104/84 99
02/24/25 07:52 02/24/25 08:07 02/24/25 08:07 02/24/25 06:00 02/24/25 08:16
I&O
02/23/25 02/24/25 02/25/25
06:59 06:59 06:59
Intake Total 0 / 0 440.4 / 440.4
Output Total 1650 / 1650 3900 / 3900
Balance -1650 / -1650 -3459.6 / -3459.6
Physical Exam
Physical Exam
Cardiology: Irregular Rate/Rhythm and Other (Tachycardic)
Pulmonary: Clear
GI: Soft and Other (Mildly distended with minimal tenderness in the upper abdomen she does have good bowel sounds though)
[2025-02-24] MEDS: CORDARONE 518 MG IV (10:04)
--- NOTE | 2025-02-24 10:16 | W.PN.CARDCBS ---
Today's Communication / Plan
-
HR remains rapid
Increased amio gtt rate
Start IV Lopressor standing
Impression / Plan
-
PCP: Praveena Hilliard
Cardiology: Dr. Aguero
EP: Dr. Bauer
Impression:
Presented with A-fib/typical flutter and RVR and acute HF 02/22/2025
Recent admission to [facility] for acute HF and rapid A-fib, loaded with digoxin 02/20/2025 until 02/21/2025
Recent admission to [facility] for abdominal distention, A-fib and acute HF 02/07/2025 until 02/10/2025
Recent admission to [facility] for A-fib and acute HF, likely had COVID just prior to this admission and had also been started on Tikosyn prior to this admission, 01/25/25 until 01/27/25
Recent admission to [facility] for newly diagnosed A-fib and acute HF 12/08/2024 until 12/14/2024
Acute HFpEF
Paroxysmal atrial fibrillation and typical flutter with RVR
Abnormal CT abdomen suggesting small enhancing mass along the wall of the gastric antrum 02/22/2025
MRI abdomen at [facility] that showed dilated stomach without mention of enhancing lesions, small pancreatic cysts and no evidence of biliary dilatation or choledocholithiasis 02/08/2025
s/p MRCP that was negative for CBD stone at [facility] 01/2025
NGT placed in ER 02/22/25
Oxygen dependent COPD
Former smoker, quit 07/2024
COVID infection 11/2024
s/p thyroidectomy, hypothyroidism
h/o HTN
Hyperlipidemia
Bipolar disorder
Echo 12/08/2024: [facility] study, EF 60 to 65%, enlarged RV with moderately reduced systolic function, severe RA/LA dilatation, trivial to mild MR, severe TR with PAP 50 mmHg, no AAS
DANIEL 12/12/2024: [facility] study, EF 60 to 65%, severely enlarged RV, no evidence of DIANNA thrombus, mild MR, mild to moderate TR with PAP 21 mmHg
RHC at [facility] on 12/14/2024: PCWP 19 with CI 2.5.
Plan:
Remains in rapid atrial flutter. Remains NPO with NG tube in place.
Marginal blood pressure limits options for rate control. Goal heart rate less than 110 bpm, but will likely need to tolerate higher HR in the near term.
Increase amio gtt to 1 mg/min
Continue IV digoxin
Low dose IV lopressor standing with hold parameters
Heparin drip with transition back to home Eliquis once able to take oral meds.
Continue IV Lasix at 40 mg twice daily
Follow renal function closely
Ideally would have standing weights
Repeat echo here to reassess LV function
Patient came to [facility] ER yesterday with acute HF and cardiology is now consulted. Patient was being evaluated in the cardiology office in [facility] yesterday, this was a new patient visit for EP consultation for persistent A-fib and consideration
of ablation. As noted above the patient has had 4 admissions to [facility] since November. It looks like patient was initially admitted to [facility] in November with A-fib as a new diagnosis and acute HF, patient had successful DANIEL/CV at that time, but recurred with
A-fib soon after. Patient was admitted to [facility] again at the end of December with recurrent A-fib and acute HF and on my review of [facility] records it appeared that in between her November admission and December admission she had COVID and was started on Tikosyn,
but still recurred with A-fib requiring admission 01/25/2025. Looks like patient was diuresed during that admission and was discharged to home on her usual dose of Tikosyn 250 mcg BID. Patient was admitted to [facility] again from 02/07/2025 until 02/10/2025
with chest pain that they treated as COPD and abdominal distention that led to MRI/MRCP of the abdomen that was negative for CBD stone and there is no mention of soft tissue masses in the stomach at that time, patient was again diuresed and
discharged to home. Patient was admitted to [facility] again 02/20/2025 until 02/21/2025 with recurrent A-fib and acute HF, during that admission they loaded her with digoxin and continued her usual dose of Tikosyn. It sounds as though the patient was
anxious for her outpatient EP evaluation and was discharged from the hospital 02/21/2025 and then came to our office at the [facility] on 02/22/2025 and acute HF and was referred to the ER.
Progress Note - [facility]
Subjective
Date of Service: February 24, 2025
Heart rates remain rapid overnight and atrial fib/flutter. Patient tells me that abdominal discomfort is significantly improved with NG tube in place. Feels her lower extremity edema is improving.
Objective
Labs:
02/24/25 05:18
Labs
Hgb 9.2 g/dL (12.0-16.0) L 02/23/25 03:06
Hct 29.0 % (37.0-47.0) L 02/23/25 03:06
Plt Count 226 10^3/uL (130-400) 02/23/25 03:06
APTT 59.3 Sec (23.4-35.0) H 02/24/25 05:18
Sodium 134 mmol/L (135-145) L 02/24/25 05:18
Potassium 4.1 mmol/L (3.5-5.1) 02/24/25 05:18
BUN 14 mg/dl (7-17) 02/24/25 05:18
Creatinine 0.7 mg/dL (0.6-1.0) 02/24/25 05:18
Glucose 93 mg/dl (70-99) 02/24/25 05:18
Digoxin 0.4 ng/ml (0.8-2.0) L 02/22/25 16:51
Troponins
02/22/25
16:51
Troponin I < 0.012
Vital Signs and I&O:
Vital Signs
Temp Pulse Resp BP Pulse Ox
98.4 F 145 26 104/84 99
02/24/25 07:52 02/24/25 08:07 02/24/25 08:07 02/24/25 06:00 02/24/25 08:16
Vital Signs
Temp Pulse Resp BP Pulse Ox
98.4 F 145 26 104/84 99
02/24/25 07:52 02/24/25 08:07 02/24/25 08:07 02/24/25 06:00 02/24/25 08:16
Intake & Output
02/22/25 02/23/25 02/24/25 02/25/25
06:59 06:59 06:59 06:59
Intake Total 0 / 0 440.4 / 440.4
Output Total 1650 / 1650 3900 / 3900 900 / 900
Balance -1650 / -1650 -3459.6 / -3459.6 -900 / -900
Physical Exam
Physical Exam
Gen: NAD, AAOx3
HEENT: NC/AT, sclera anicteric
Neck: No JVD
CV: Tachy irregular, NL s1/s2
Lungs: CTAB
Abd: S/ND
Ext: No LE edema
Skin: Warm, dry
Neuro: Non-focal
--- NOTE | 2025-02-24 10:21 | PTCARENOTE ---
Order received to increase Amio gtt back to 1, see worklist.
--- NOTE | 2025-02-24 10:25 | PN.CDI ---
CDI
- -
CDI:
Physician Documentation Request
Admit Date: 02/23/25 00:12
Dear Doctor Magi,
Clinical Indicators:
Patient admitted with acute on chronic HFpEF; PMH includes COPD on home oxygen since 12/2024.
02/23 H & P, 'COPD with Chronic Hypoxemic Respiratory Failure'
02/23 PN, 'Chronic Hypoxia-Continue supplemental oxygen at 3L via nasal cannula'
Due to potentially conflicting documentation, please clarify which of the following accurately represents the patient's respiratory status:
Chronic Hypoxemic Respiratory Failure (continuous 02 use)
Hypoxia only (intermittent 02 use )
Other
Use of terms such as suspected, likely, concern for, or probable (associated with a specific diagnosis that is being evaluated, monitored, or treated as if it exists) are acceptable and can be coded in the inpatient setting, when documented at the
time of discharge.
Thank you,
FLAKITA Glynn RN
CDI Specialist
available via tiger text
Please use your independent medical judgment in providing your response.
--- NOTE | 2025-02-24 11:00 | W.PN.GS2 ---
Addendum entered and electronically signed by Matthew Sotomayor MD 02/24/25 11:39:
I was physically present and personally performed the ku portions of the surgical evaluation and/or procedure with the resident. I discussed the findings, reviewed the resident�s note, and confirmed the medical decision-making. I provided direct
supervision as required and agree with the assessment and plan as documented with the following additions/corrections:
Pt with resolution of abd pain and nausea with NGT to suction, ongoing issues with rapid afib and soft BP, will ultimately need UGI and EGD however would need to be more stable from a cardiac standpoint to proceed. Will obtain UGI when HR control
improved.
Original Note:
Today's Communication / Plan
-
NGT Decompression and bowel rest
Further surgical intervention pending imaging studies.
Assessment / Plan
-
Patient is a 64-year-old female with a past medical history of paroxysmal atrial fibrillation on Eliquis, HFpEF, COPD on home oxygen, hypertension, hyperlipidemia, bipolar disorder, and anxiety, and a past surgical history of bunion removal, who
presented from for hypotension, volume overload, and abdominal distention, associated with intermittent episodes of vomiting. CT abdomen/pelvis showed severe gastric distension with stomach filled with fluid and presumed food material. Enhancing
mass noted along the gastric antrum or duodenal bulb.
Abdominal pain seems to be improved. No longer complaining of having any today. She had 2x blood streaked stool yesterday. Heart rate/rhythm still irregular and very elevated.
-NGT Decompression and bowel rest
-Upper GI with contrast pending until patient is more clinically stable
-surgery will continue to follow
Subjective Data
-
Date of Service: February 24, 2025
The patient denies having any abdominal pain/tenderness today. Last bowel movement was today, formed, non-bloody. 2 BM yesterday was noted to be blood streaked.
Objective Data
-
Intake and Output
02/23/25 02/24/25 02/25/25
06:59 06:59 06:59
Intake Total 0 / 0 440.4 / 440.4
Output Total 1650 / 1650 3900 / 3900 900 / 900
Balance -1650 / -1650 -3459.6 / -3459.6 -900 / -900
Intake:
Oral fluids 0 / 0
IV fluids (Total) 0 / 0
IV piggybacks 320.4 / 320.4
Amount instilled into GI Tube ( 0 / 0 120 / 120
Total)
[place] Sump 0 / 0 120 / 120
Output:
Gastrointestinal tube output ( 450 / 450 350 / 350
Total)
[place] Sump 350 / 350
Urine, Voided 1200 / 1200 3550 / 3550 900 / 900
Other:
How many times incontinent 1
MODERATE amount urine
How many times incontinent 1 1
SATURATED amount urine
Vital Signs
Temp Pulse Resp BP Pulse Ox
98.4 F 138 24 97/75 98
02/24/25 07:52 02/24/25 10:00 02/24/25 10:00 02/24/25 09:04 02/24/25 10:24
Lab Results
02/24/25 05:18
Calcium 7.9 mg/dl (8.4-10.2) L 02/24/25 05:18
Phosphorus 4.1 mg/dl (2.5-4.5) 02/24/25 05:18
Magnesium 2.4 mg/dl (1.6-2.3) H 02/24/25 05:18
Total Bilirubin 0.5 mg/dl (0.2-1.3) 02/24/25 05:18
AST 16 U/L (14-36) 02/24/25 05:18
ALT 17 U/L (0-35) 02/24/25 05:18
Alkaline Phosphatase 51 U/L (38-126) 02/24/25 05:18
Total Protein 5.5 g/dl (6.3-8.2) L 02/24/25 05:18
Albumin 3.0 g/dl (3.5-5.0) L 02/24/25 05:18
Physical Exam
-
General: NAD
Cardiac: Irregular HR, tachycardic (140's-160's)
Lungs: Non-labored breathing on O2 supplementation @3L
Abdomen: soft, distended, non-tender
Patient has a hallman catheter: Yes
Patient has a central line: No
[2025-02-24] MEDS: LOPRESSOR 2.5 MG IV ×2 (12:03→19:25)
[2025-02-24 12:17] LABS: Hematocrit 32.0 % (37.0-47.0); Hemoglobin 10.4 g/dL (12.0-16.0); Mean Corp Hgb Conc. 32.5 g/dL (33.0-37.0); Mean Corpuscular Volume 85.3 fL (81.0-99.0); Nucleated Red Blood Cells % 0.2 %; Platelet Count 241 10^3/uL (130-400); Red Cell Dist. Width 17.7 % (11.5-14.5)
[2025-02-24 12:27] LABS: APTT 82.9 Sec (23.4-35.0)
--- NOTE | 2025-02-24 12:27 | PTCARENOTE ---
Per IVT, PICC is okay to use. Peripheral sites removed, new tubing placed for amio gtt.
--- NOTE | 2025-02-24 13:28 | PTCARENOTE ---
Pt for UGI series. HR uncontrolled and up to the 170's. D/w anusha Chavarria to hold test at this time as pt's HR is not stable.
--- NOTE | 2025-02-24 14:06 | W.PN.HOSP.TC ---
Today's Communication/Plan
-
Continue with aggressive IV diuresis
Continue with IV amiodarone dose adjusted
IV Lopressor
PPI IV twice daily
Bowel regimen
Assessment / Plan
Assessment / Plan
General: No Apparent Distress and Conversant; Negative Slurred Speech
HEENT: Normocephalic, Atraumatic, Moist Mucous Membranes and Oxygen
Respiratory: Clear to Auscultation (Anterior)
Cardiac: S1/S2, Irregular Rhythm and Tachycardic; Negative Murmur, Rub or Gallop
GI: Soft, Nontender, Normal Bowel Sounds, Distended imrpoved and Other (NG tube noted); Negative Organomegaly
Rectal: Deferred by Provider
Musculoskeletal: No Clubbing, No Cyanosis, Edema, Right Lower Extrem and Edema, Left Lower Extrem
Skin: Negative Rash
Neuro: Awake, AO x 3, No Motor Deficits and Nonfocal/Grossly Intact
Psych: Calm
Acute on Chronic HFpEF
-Monitor Is&Os and Daily Weights
-Agree with Lasix 40 mg twice daily. Requires invasive monitoring
-Monitor blood pressure closely. Surrounding soft blood pressure at times. May require pressure support.
-Monitor creatinine closely. Elevated proBNP noted. Significant urinary output. Losing weight.
Paroxysmal atrial fibrillation with rapid ventricular response
- Remains on IV amiodarone. Dose increased.
- Continue digoxin 0.125mg IV Daily. Also started on Lopressor standing.
- Started on IV heparin as Eliquis remains on hold.
- Extremely difficult to achieve rate control.
Gastric Outlet Obstruction
-Abd/Pelvis CT scan raises concern for small mass along gastric antrum vs duodenum
-NGT placed in ED
-Continue NPO
-Monitor NG tube output.
-Start PPI
-Abdominal distention improving
COPD, no acute exacerbation
Chronic Hypoxia respiratory failure
-Continue supplemental oxygen at 3L via nasal cannula
-Continue Anoro Ellipta
Bipolar Disorder
-Continue Risperdal oral disintegrating tablet if possible
-Hold Depakote until able to resume oral meds
Sub clinical hypothyroidism
Status post thyroidectomy
- Once able to take p.o. may need to adjust Synthroid dose
Iron deficiency anemia
- IV iron started
DVT proph: IV heparin
Code Status: Full Code
Anticipated Discharge: > 48 hours
Subjective/Interval History
-
Date of Service: February 24, 2025
Remains in atrial fibrillation with rapid ventricular response
States improvement in abdominal distention
States had bowel movement earlier today
Objective Data
-
Labs:
Laboratory Results
02/24/25 02/24/25
05:18 12:02
WBC 9.6
Hgb 10.4 L
Hct 32.0 L
Plt Count 241
APTT 59.3 H 82.9 H
Sodium 134 L
Potassium 4.1
Chloride 98
Carbon Dioxide 32 H
BUN 14
Creatinine 0.7
Glucose 93
Calcium 7.9 L
Total Bilirubin 0.5
AST 16
ALT 17
Alkaline Phosphatase 51
Vital Signs:
Vital Signs
Temp Pulse Resp BP Pulse Ox
99.0 F 156 22 83/63 98
02/24/25 11:11 02/24/25 13:00 02/24/25 13:00 02/24/25 13:00 02/24/25 13:00
I&O
02/23/25 02/24/25 02/25/25
06:59 06:59 06:59
Intake Total 0 / 0 440.4 / 440.4
Output Total 1650 / 1650 3900 / 3900 900 / 900
Balance -1650 / -1650 -3459.6 / -3459.6 -900 / -900
Data Reviewed
-
Total Time Spent with Patient (in minutes): 55
[2025-02-24] MEDS: HEPARIN 25000 UNITS/250 ML IV (14:36)
[2025-02-24] MEDS: FERRLECIT 110 MG IV (14:38)
--- NOTE | 2025-02-24 14:46 | CM ---
Following up on Patient. According to Medical Progress notes, the plan is to Continue with aggressive IV diuresis, Continue with IV amiodarone dose adjusted, IV Lopressor, PPI IV twice daily, and Bowel regimen.
PLAN: Home w/ Home Care when ready.
--- NOTE | 2025-02-24 16:30 | PTCARENOTE ---
M&M enema administered as ordered, pt with good relief.
[2025-02-24] MEDS: LASIX IV (17:23)
[2025-02-24] MEDS: LOPRESSOR IV (18:05)
[2025-02-24 18:54] LABS: APTT > 200 Sec (23.4-35.0)
[2025-02-25] VITALS (24 sets, daily range): BP systolic 92–135; BP diastolic 65–98; BMI 20.4
[2025-02-25] MEDS: LOPRESSOR IV (00:15)
[2025-02-25] MEDS: CORDARONE 518 MG IV ×2 (01:07→16:56)
[2025-02-25] MEDS: LOPRESSOR 2.5 MG IV ×4 (03:05→17:00)
[2025-02-25 03:23] LABS: Hematocrit 32.0 % (37.0-47.0); Hemoglobin 10.1 g/dL (12.0-16.0); Mean Corp Hgb Conc. 31.6 g/dL (33.0-37.0); Mean Corpuscular Volume 84.2 fL (81.0-99.0); Platelet Count 220 10^3/uL (130-400); Red Cell Dist. Width 17.6 % (11.5-14.5)
[2025-02-25 03:31] LABS: APTT 109.8 Sec (23.4-35.0)
[2025-02-25 03:48] LABS: ALT (SGPT) 16 U/L (0-35); AST (SGOT) 19 U/L (14-36); Albumin 3.1 g/dl (3.5-5.0); Alkaline Phosphatase 49 U/L (38-126); Blood Urea Nitrogen 10 mg/dl (7-17); Calcium 8.0 mg/dl (8.4-10.2); Carbon Dioxide 28 mmol/L (22-30); Chloride 101 mmol/L (98-107); Digoxin 1.0 ng/ml (0.8-2.0); Estimated Creatinine Clearance 63 ml/min; Glucose 88 mg/dl (70-99); Potassium 4.0 mmol/L (3.5-5.1); Sodium 134 mmol/L (135-145); Total Protein 5.7 g/dl (6.3-8.2); eGFR > 60.00
--- NOTE | 2025-02-25 05:52 | PTCARENOTE ---
NO acute events overnight. Abd soft non tender with normal bowels sounds. No nausea/vomiting. NGT to LIWS with minimal clear output. Remains in afib 90s-140s, did not reach the 160s as in previous night. Amio and heparin gtt infusing. Will continue
to monitor.
[2025-02-25] MEDS: SPIRIVA RESPIMAT 2.5 MCG 2 PUFF INH (07:33)
[2025-02-25] MEDS: STRIVERDI RESPIMAT 2 PUFF INH (07:33)
[2025-02-25] MEDS: LASIX 40 MG IV (08:46)
[2025-02-25] MEDS: RISPERDAL M-TAB (ORALLY DISINTEGRATING) 0.5 MG PO ×2 (08:46→19:33)
[2025-02-25] MEDS: PROTONIX IV 40 MG IV ×2 (08:49→19:33)
[2025-02-25] MEDS: NSS (PRESERVATIVE FREE) 10 ML IV ×2 (08:49→19:33)
[2025-02-25] MEDS: HURRICAINE SPRAY 1 APPLIC TOPICAL ×2 (09:10→20:34)
--- NOTE | 2025-02-25 09:29 | PTCARENOTE ---
Assumed care of patient this morning. She reports no abdominal pain and abdomen feeling much less distended. HR converted to SR with PACs this morning approx 0630. Heparin and Amio gtt maintained per orders. Pt is on RA, lungs still coarse. NGT
maintained to LIWS, minimal output overnight. Pt does c/o of sore throat, Hurricaine spray administered, see MAR. Assessment, care and VS as charted.
--- NOTE | 2025-02-25 10:28 | W.PN.GI.CBS2 ---
Today's Communication / Plan
-
UGI today and based on that may need EGD vs surgery when more stable
Assessment / Plan
-
Pt is a 64yo with hx multiple medical problems including, afib/flutter newly diagnosed with newly started an DANIEL/CV, CHF, COPD with home O2, hypoxemia, bipolar disorder, overactive bladder, hypothyroidism thyroidectomy with recent prolonged
admissions at [facility]. Per patient she was admitted mid November til December with ICU admission with intubation, CHF, COPD exacerbation, afib (new), PNA, covid and psych med adjustment. Per cardiology noted she was noted with abdominal distention
and had MRI/MRCP during admission neg for stone and no mention of gastric mass but gastric distention . She now presents 02/22 from cardiology office. On admission she is noted with concern for heart failure, afib with RVR with HR in 140-150's,
and hypoxemia. CT A/p was completed with moderate left lobe PNA, severe gastric distention with question of enhancing mass along gastric antrum vs duodenum t/c EGD vs UGI. Asked to see for findings. Labs on admission notable for hbg 9 with iron
deficiency (chronic per patient), albumin 3.1, normal LFT's, proBNP 5980, TSH 17.4 with normal T4. In review with patient she admits to marked wt loss of over 30 lbs. She admits to dysphagia, GERD with vomiting variable amount over last 3 weeks
mostly bilious material with food at times. She has diffuse abdominal bloating and pressure. She also admits to diarrhea and constipation altenating with some blood and black in stools at times. No hx EGD and last colonoscopy 10 + years ago. She
admits to chronic NSAID use for years but changed to Tylenol about 1 year ago.
-abdominal distention with nausea/vomiting CT concern for marked severe gastric distention with question of enhancing mass along gastric antrum vs duodenum
-reported MRI 2 weeks ago with similar gastric distention at [facility]
-alternating diarrhea and constipation
-rectal bleeding red and blood in stools
-anemia with iron deficiency
-afib with RVR
-acute heart failure
-multiple recent admission at [facility] with with ICU admission with intubation, COPD exacerbation, CHF, afib (new), PNA, covid and psych med adjustment
other med problems:
COPD- O2 dependent
Former smoker recently quit
COVID infection 11/2024
s/p thyroidectomy, hypothyroidism TSH 17.4 and T4 normal 1.56
h/o HTN
Hyperlipidemia
Bipolar disorder
overactive bladder
PLAN:
Etiology of severe gastric distention with obstruction/GOO most likely related to possible mass as noted on CT in the gastric antrum or duodenum versus PUD. Findings concerning for possible neoplasm given that she also had 30 pound weight loss
recently and also has iron deficiency anemia
EGD when more stable heart rate seems to be better controlled today
upper GI with contrast through the NG tube hopefully today
abdominal pain and distention have improved status post NG tube drainage, minimal drainage through the NG now, may need to be advanced the tip of the NG seems to be in the fundus
Continue PPI twice daily
Continue IV iron infusions
Continue heparin for now since she has no evidence of GI bleed
She also has constipation noted on x-ray which may be making her obstruction worse and she did have a large bowel movement yesterday after milk of molasses enema and when able to tolerate p.o. can start MiraLAX
Subjective
Subjective
Date of Service: February 25, 2025
She had a large bowel movement after the milk of molasses enema. Feels less distended no abdominal pain she is hungry and wants to eat. Was unable to get the upper GI yesterday since her heart rates were elevated and better today
Objective
Data Reviewed
Laboratory Data:
Laboratory Results
02/25/25 03:12
02/25/25 03:12
Laboratory Results
APTT 109.8 Sec (23.4-35.0) H 02/25/25 03:12
Phosphorus 4.1 mg/dl (2.5-4.5) 02/24/25 05:18
Magnesium 2.4 mg/dl (1.6-2.3) H 02/24/25 05:18
Total Bilirubin 0.5 mg/dl (0.2-1.3) 02/25/25 03:12
AST 19 U/L (14-36) 02/25/25 03:12
ALT 16 U/L (0-35) 02/25/25 03:12
Alkaline Phosphatase 49 U/L (38-126) 02/25/25 03:12
Vital Signs and I&O:
Vital Signs
Temp Pulse Resp BP Pulse Ox
98.2 F 90 24 122/86 94
02/25/25 07:00 02/25/25 09:00 02/25/25 09:00 02/25/25 09:00 02/25/25 09:33
I&O
02/24/25 02/25/25 02/26/25
06:59 06:59 06:59
Intake Total 440.4 / 440.4 569.6 / 569.6 30
Output Total 3900 / 3900 1800 / 1800 600 / 600
Balance -3459.6 / -3459.6 -1230.4 / -1230.4 -570 / -570
Physical Exam
Physical Exam
Cardiology: Irregular Rate/Rhythm
Pulmonary: Clear
GI: Soft, Non Distended, Non Tender and Normal Bowel Sounds
[2025-02-25 10:38] LABS: APTT 73.7 Sec (23.4-35.0)
[2025-02-25] MEDS: LANOXIN 125 MCG IV (11:30)
--- NOTE | 2025-02-25 11:43 | PTCARENOTE ---
Called XR department for patient's upper GI series and they advised test is only done during the weekdays.
--- NOTE | 2025-02-25 12:32 | W.PN.GS2 ---
Addendum entered and electronically signed by Matthew Sotomayor MD 02/25/25 12:42:
I saw and examined the patient.
The MATCH MARKER's note was reviewed and I agree with the note.
Comment: no complaints, Denies passing flatus, belly soft nt; for EGD Thursday with GI
Original Note:
Today's Communication / Plan
-
NGT
NPO
GI work up
Assessment / Plan
-
64 yo female presenting with multiple medical problems including, afib/flutter newly diagnosed with newly started an DANIEL/CV, CHF, COPD with home O2, hypoxemia, bipolar disorder and multiple long recent admissions at [facility] with HF and
AFib RVR seen and evaluated by GS team for abdominal pain/n/v with severe gastric distention and suspected GOO secondary to mass along antrum vs duodenum on CT.
ABD pain and nausea resolved with distention improving with gastric decompression and enemas
HR now controlled with stable BP
NGT with minimal outputs
IV heparing while off PO Eliquis, h/h stable
No leukocytosis
Plan:
Continue NGT given GOO, lavage q4h and prn
NPO except ice chips for comfort, no PO meds
GI following with us with plans for EGD once stable from cardiac standpoint
UGI ordered, however, may not be able to be preformed over the weekend
PPI BID
Prolonged NPO, will check nutritional labs in AM
Medical management as per primary team
Subjective Data
-
Date of Service: February 25, 2025
Pt seen and examined at bedside with Dr. Sotomayor. Denies n/v. Large BM after enema yesterday. Denies pain.
Objective Data
-
Intake and Output
02/24/25 02/25/25 02/26/25
06:59 06:59 06:59
Intake Total 440.4 / 440.4 569.6 / 569.6
Output Total 3900 / 3900 1800 / 1800 600 / 600
Balance -3459.6 / -3459.6 -1230.4 / -1230.4 -570 / -570
Intake:
IV piggybacks 320.4 / 320.4 479.6 / 479.6
Amount instilled into GI Tube ( 120 / 120 90 / 90 30
Total)
[place] Sump 120 / 120 90 / 90 30 / 30
Output:
Gastrointestinal tube output ( 350 / 350 50 / 50
Total)
[place] Sump 350 / 350 50 / 50
Urine, Voided 3550 / 3550 1750 / 1750 600 / 600
Other:
How many times incontinent 1
MODERATE amount urine
How many times incontinent 1 1
SATURATED amount urine
Vital Signs
Temp Pulse Resp BP Pulse Ox
98.2 F 88 19 116/75 96
02/25/25 11:00 02/25/25 11:31 02/25/25 11:00 02/25/25 11:31 02/25/25 11:00
Lab Results
02/25/25 03:12
02/25/25 03:12
Calcium 8.0 mg/dl (8.4-10.2) L 02/25/25 03:12
Phosphorus 4.1 mg/dl (2.5-4.5) 02/24/25 05:18
Magnesium 2.4 mg/dl (1.6-2.3) H 02/24/25 05:18
Total Bilirubin 0.5 mg/dl (0.2-1.3) 02/25/25 03:12
AST 19 U/L (14-36) 02/25/25 03:12
ALT 16 U/L (0-35) 02/25/25 03:12
Alkaline Phosphatase 49 U/L (38-126) 02/25/25 03:12
Total Protein 5.7 g/dl (6.3-8.2) L 02/25/25 03:12
Albumin 3.1 g/dl (3.5-5.0) L 02/25/25 03:12
Physical Exam
-
General: NAD
Lungs: Non-labored breathing
Abdomen: soft, mild to mod distention (improving), non-tender, NGT with minimal output
[2025-02-25] MEDS: FERRLECIT 110 MG IV (13:06)
--- NOTE | 2025-02-25 13:29 | W.PN.HOSP.TC ---
Today's Communication/Plan
-
Continue with amiodarone
Continue IV heparin
Monitor NG tube output decreased
Monitor urinary output
Upper GI series versus EGD on Thursday
Assessment / Plan
Assessment / Plan
General: No Apparent Distress and Conversant; Negative Slurred Speech
HEENT: Normocephalic, Atraumatic, Moist Mucous Membranes and Oxygen
Respiratory: Clear to Auscultation (Anterior)
Cardiac: S1/S2, regular irregular. Heart rate 83 on telemetry looks normal sinus rhythm
GI: Soft, Nontender, Normal Bowel Sounds, Distended imrpoved and Other (NG tube noted); Negative Organomegaly
Rectal: Deferred by Provider
Musculoskeletal: No Clubbing, No Cyanosis, Edema, Right Lower Extrem and Edema, Left Lower Extrem
Skin: Negative Rash
Neuro: Awake, AO x 3, No Motor Deficits and Nonfocal/Grossly Intact
Psych: Calm
Acute on Chronic HFpEF
-Monitor Is&Os and Daily Weights
-Agree with Lasix 40 mg twice daily. Requires invasive monitoring
-Monitor blood pressure closely. Surrounding soft blood pressure at times. May require pressure support.
-Monitor creatinine closely. Elevated proBNP noted. Significant urinary output. Losing weight.
Paroxysmal atrial fibrillation with rapid ventricular response
- Remains on IV amiodarone. Dose adjustment per cardiology.
- Continue digoxin 0.125mg IV Daily. Also started on Lopressor standing.
- Started on IV heparin as Eliquis remains on hold.
- Converted to normal sinus rhythm. Monitor heart rate.
Gastric Outlet Obstruction
-Abd/Pelvis CT scan raises concern for small mass along gastric antrum vs duodenum
-NGT placed in ED
-Continue NPO
-Monitor NG tube output.
-Start PPI
-Abdominal distention improving
- Upper GI series Thursday versus endoscopy on Thursday.
COPD, no acute exacerbation
Chronic Hypoxia respiratory failure
-Continue supplemental oxygen at 3L via nasal cannula
-Continue Anoro Ellipta
Bipolar Disorder
-Continue Risperdal oral disintegrating tablet if possible
-Hold Depakote until able to resume oral meds
Sub clinical hypothyroidism
Status post thyroidectomy
- Once able to take p.o. may need to adjust Synthroid dose
Iron deficiency anemia
- IV iron started
DVT proph: IV heparin
Code Status: Full Code
Anticipated Discharge: > 48 hours
Subjective/Interval History
-
Date of Service: February 25, 2025
Denies any chest pain palpitation
States significant improvement in abdominal distention
Passing flatulence. Had bowel movements with enema
Objective Data
-
Labs:
Laboratory Results
02/25/25 02/25/25
03:12 10:14
WBC 8.2
Hgb 10.1 L
Hct 32.0 L
Plt Count 220
APTT 109.8 H 73.7 H
Sodium 134 L
Potassium 4.0
Chloride 101
Carbon Dioxide 28
BUN 10
Creatinine 0.7
Glucose 88
Calcium 8.0 L
Total Bilirubin 0.5
AST 19
ALT 16
Alkaline Phosphatase 49
Vital Signs:
Vital Signs
Temp Pulse Resp BP Pulse Ox
98.2 F 88 19 116/75 96
02/25/25 11:00 02/25/25 11:31 02/25/25 11:00 02/25/25 11:31 02/25/25 11:00
I&O
02/24/25 02/25/25 02/26/25
06:59 06:59 06:59
Intake Total 440.4 / 440.4 569.6 / 569.6 30 / 30
Output Total 3900 / 3900 1800 / 1800 600 / 600
Balance -3459.6 / -3459.6 -1230.4 / -1230.4 -570 / -570
Data Reviewed
-
Total Time Spent with Patient (in minutes): 55
--- NOTE | 2025-02-25 15:02 | W.PN.CARDCBS ---
Today's Communication / Plan
-
Converted to sinus rhythm
Continue amiodarone drip, IV Lopressor, IV heparin - can transition to oral when able to take p.o.
Stop digoxin
Impression / Plan
-
PCP: Praveena Hilliard
Cardiology: Dr. Aguero
EP: Dr. Bauer
Impression:
Presented with A-fib/typical flutter and RVR and acute HF 02/22/2025
Recent admission to [facility] for acute HF and rapid A-fib, loaded with digoxin 02/20/2025 until 02/21/2025
Recent admission to [facility] for abdominal distention, A-fib and acute HF 02/07/2025 until 02/10/2025
Recent admission to [facility] for A-fib and acute HF, likely had COVID just prior to this admission and had also been started on Tikosyn prior to this admission, 01/25/25 until 01/27/25
Recent admission to [facility] for newly diagnosed A-fib and acute HF 12/08/2024 until 12/14/2024
Acute HFpEF
Paroxysmal atrial fibrillation and typical flutter with RVR
Abnormal CT abdomen suggesting small enhancing mass along the wall of the gastric antrum 02/22/2025
MRI abdomen at [facility] that showed dilated stomach without mention of enhancing lesions, small pancreatic cysts and no evidence of biliary dilatation or choledocholithiasis 02/08/2025
s/p MRCP that was negative for CBD stone at [facility] 01/2025
NGT placed in ER 02/22/25
Oxygen dependent COPD
Former smoker, quit 07/2024
COVID infection 11/2024
s/p thyroidectomy, hypothyroidism
h/o HTN
Hyperlipidemia
Bipolar disorder
Echo 12/08/2024: [facility] study, EF 60 to 65%, enlarged RV with moderately reduced systolic function, severe RA/LA dilatation, trivial to mild MR, severe TR with PAP 50 mmHg, no AAS
DANIEL 12/12/2024: [facility] study, EF 60 to 65%, severely enlarged RV, no evidence of DIANNA thrombus, mild MR, mild to moderate TR with PAP 21 mmHg
RHC at [facility] on 12/14/2024: PCWP 19 with CI 2.5.
Plan:
Converted from rapid atrial flutter to sinus rhythm overnight
Cont IV amiodarone to maintain sinus rhythm. Transition to PO when able. Remains NPO with NG tube in place.
Cont IV lopressor hold parameters
Stop digoxin
Heparin drip with transition back to home Eliquis once able to take oral meds.
Decrease IV Lasix frequency to once daily at 40 mg
Follow renal function closely
Ideally would have standing weights
Echo 02/24 with NL biV size and function, NL PASP
Patient came to [facility] ER yesterday with acute HF and cardiology is now consulted. Patient was being evaluated in the cardiology office in the [facility] yesterday, this was a new patient visit for EP consultation for persistent A-fib and consideration
of ablation. As noted above the patient has had 4 admissions to [facility] since November. It looks like patient was initially admitted to [facility] in November with A-fib as a new diagnosis and acute HF, patient had successful DANIEL/CV at that time, but recurred with
A-fib soon after. Patient was admitted to [facility] again at the end of December with recurrent A-fib and acute HF and on my review of [facility] records it appeared that in between her November admission and December admission she had COVID and was started on Tikosyn,
but still recurred with A-fib requiring admission 01/25/2025. Looks like patient was diuresed during that admission and was discharged to home on her usual dose of Tikosyn 250 mcg BID. Patient was admitted to [facility] again from 02/07/2025 until 02/10/2025
with chest pain that they treated as COPD and abdominal distention that led to MRI/MRCP of the abdomen that was negative for CBD stone and there is no mention of soft tissue masses in the stomach at that time, patient was again diuresed and
discharged to home. Patient was admitted to [facility] again 02/20/2025 until 02/21/2025 with recurrent A-fib and acute HF, during that admission they loaded her with digoxin and continued her usual dose of Tikosyn. It sounds as though the patient was
anxious for her outpatient EP evaluation and was discharged from the hospital 02/21/2025 and then came to our office at the [facility] on 02/22/2025 and acute HF and was referred to the ER.
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
Subjective
Date of Service: February 25, 2025
Patient converted from rapid A-flutter to sinus rhythm overnight.
Remains in IMU with NG tube in place. Reports that her abdominal discomfort is improved.
Objective
Labs:
02/25/25 03:12
02/25/25 03:12
Labs
Hgb 10.1 g/dL (12.0-16.0) L 02/25/25 03:12
Hct 32.0 % (37.0-47.0) L 02/25/25 03:12
Plt Count 220 10^3/uL (130-400) 02/25/25 03:12
APTT 73.7 Sec (23.4-35.0) H 02/25/25 10:14
Sodium 134 mmol/L (135-145) L 02/25/25 03:12
Potassium 4.0 mmol/L (3.5-5.1) 02/25/25 03:12
BUN 10 mg/dl (7-17) 02/25/25 03:12
Creatinine 0.7 mg/dL (0.6-1.0) 02/25/25 03:12
Glucose 88 mg/dl (70-99) 02/25/25 03:12
Digoxin 1.0 ng/ml (0.8-2.0) 02/25/25 03:12
Troponins
02/22/25
16:51
Troponin I < 0.012
Vital Signs and I&O:
Vital Signs
Temp Pulse Resp BP Pulse Ox
98.2 F 90 27 117/79 94
02/25/25 11:00 02/25/25 14:00 02/25/25 14:00 02/25/25 14:00 02/25/25 14:00
Vital Signs
Temp Pulse Resp BP Pulse Ox
98.2 F 90 27 117/79 94
02/25/25 11:00 02/25/25 14:00 02/25/25 14:00 02/25/25 14:00 02/25/25 14:00
Intake & Output
02/23/25 02/24/25 02/25/25 02/26/25
06:59 06:59 06:59 06:59
Intake Total 0 / 0 440.4 / 440.4 569.6 / 569.6 30 / 30
Output Total 1650 / 1650 3900 / 3900 1800 / 1800 1150 / 1150
Balance -1650 / -1650 -3459.6 / -3459.6 -1230.4 / -1230.4 -1120 / -1120
Physical Exam
Physical Exam
Gen: NAD, AAOx3
HEENT: NC/AT, sclera anicteric, NG tube in place
Neck: No JVD
CV: RRR, NL s1/s2
Lungs: CTAB
Abd: Distended
Ext: Trace LE edema
Skin: Warm, dry
Neuro: Non-focal
--- NOTE | 2025-02-25 16:08 | CM ---
chart reviewed; case management will continue to follow and support discharge plan when identified
[2025-02-25] MEDS: HEPARIN 25000 UNITS/250 ML IV (23:46)
[2025-02-26] VITALS (21 sets, daily range): BP systolic 109–154; BP diastolic 65–111; BMI 19.7
[2025-02-26] MEDS: LOPRESSOR 2.5 MG IV ×4 (00:01→17:02)
[2025-02-26 04:04] LABS: Hematocrit 31.2 % (37.0-47.0); Hemoglobin 10.1 g/dL (12.0-16.0); Mean Corp Hgb Conc. 32.4 g/dL (33.0-37.0); Mean Corpuscular Volume 85.2 fL (81.0-99.0); Platelet Count 241 10^3/uL (130-400); Red Cell Dist. Width 17.2 % (11.5-14.5)
[2025-02-26 04:14] LABS: APTT 81.6 Sec (23.4-35.0)
[2025-02-26 04:22] LABS: ALT (SGPT) 17 U/L (0-35); AST (SGOT) 21 U/L (14-36); Albumin 3.3 g/dl (3.5-5.0); Alkaline Phosphatase 52 U/L (38-126); Blood Urea Nitrogen 9 mg/dl (7-17); Calcium 8.2 mg/dl (8.4-10.2); Carbon Dioxide 27 mmol/L (22-30); Chloride 100 mmol/L (98-107); Estimated Creatinine Clearance 63 ml/min; Glucose 85 mg/dl (70-99); Magnesium 2.2 mg/dl (1.6-2.3); Potassium 3.8 mmol/L (3.5-5.1); Sodium 133 mmol/L (135-145); Total Protein 6.0 g/dl (6.3-8.2); Triglycerides 132 mg/dl (10-149); eGFR > 60.00
[2025-02-26 04:30] LABS: Prealbumin (Transthyretin) 17.1 mg/dl (17.6-36.0)
--- NOTE | 2025-02-26 05:59 | PTCARENOTE ---
No acute events overnight. NGT to LIWS with small amount of clear yellow output. No nausea/ vomiting. Abdomen soft, non tender, non distended with positive bowel sounds. Remains in NSR on amio and heparin gtt. Heparin gtt therapeutic and next PTT in
the am. Will continue to monitor.
[2025-02-26] MEDS: HURRICAINE SPRAY 1 APPLIC TOPICAL ×2 (06:31→19:53)
[2025-02-26] MEDS: SPIRIVA RESPIMAT 2.5 MCG 2 PUFF INH (08:04)
[2025-02-26] MEDS: STRIVERDI RESPIMAT 2 PUFF INH (08:05)
[2025-02-26] MEDS: PROTONIX IV 40 MG IV ×2 (09:13→19:53)
[2025-02-26] MEDS: LASIX 40 MG IV (09:13)
[2025-02-26] MEDS: RISPERDAL M-TAB (ORALLY DISINTEGRATING) 0.5 MG PO ×2 (09:13→19:53)
[2025-02-26] MEDS: NSS (PRESERVATIVE FREE) 10 ML IV ×2 (09:13→19:53)
--- NOTE | 2025-02-26 10:07 | W.PN.GI.CBS2 ---
Today's Communication / Plan
-
UGI in AM
Assessment / Plan
-
Pt is a 64yo with hx multiple medical problems including, afib/flutter newly diagnosed with newly started an DANIEL/CV, CHF, COPD with home O2, hypoxemia, bipolar disorder, overactive bladder, hypothyroidism thyroidectomy with recent prolonged
admissions at [facility]. Per patient she was admitted mid November til December with ICU admission with intubation, CHF, COPD exacerbation, afib (new), PNA, covid and psych med adjustment. Per cardiology noted she was noted with abdominal distention
and had MRI/MRCP during admission neg for stone and no mention of gastric mass but gastric distention . She now presents 02/22 from cardiology office. On admission she is noted with concern for heart failure, afib with RVR with HR in 140-150's,
and hypoxemia. CT A/p was completed with moderate left lobe PNA, severe gastric distention with question of enhancing mass along gastric antrum vs duodenum t/c EGD vs UGI. Asked to see for findings. Labs on admission notable for hbg 9 with iron
deficiency (chronic per patient), albumin 3.1, normal LFT's, proBNP 5980, TSH 17.4 with normal T4. In review with patient she admits to marked wt loss of over 30 lbs. She admits to dysphagia, GERD with vomiting variable amount over last 3 weeks
mostly bilious material with food at times. She has diffuse abdominal bloating and pressure. She also admits to diarrhea and constipation altenating with some blood and black in stools at times. No hx EGD and last colonoscopy 10 + years ago. She
admits to chronic NSAID use for years but changed to Tylenol about 1 year ago.
-abdominal distention with nausea/vomiting CT concern for marked severe gastric distention with question of enhancing mass along gastric antrum vs duodenum
-reported MRI 2 weeks ago with similar gastric distention at H
-alternating diarrhea and constipation
-rectal bleeding red and blood in stools
-anemia with iron deficiency
-afib with RVR
-acute heart failure
-multiple recent admission at [facility] with with ICU admission with intubation, COPD exacerbation, CHF, afib (new), PNA, covid and psych med adjustment
other med problems:
COPD- O2 dependent
Former smoker recently quit
COVID infection 11/2024
s/p thyroidectomy, hypothyroidism TSH 17.4 and T4 normal 1.56
h/o HTN
Hyperlipidemia
Bipolar disorder
overactive bladder
PLAN:
Etiology of severe gastric distention with obstruction/GOO most likely related to possible mass as noted on CT in the gastric antrum or duodenum versus PUD. Findings concerning for possible neoplasm given that she also had 30 pound weight loss
recently and also has iron deficiency anemia
EGD when more stable heart rate seems to be better controlled, noted input from cardiology, on heparin and amiodarone digoxin was discontinued
upper GI with contrast through the NG tube tomorrow
abdominal pain and distention have improved status post NG tube drainage, minimal drainage through the NG now
Continue PPI twice daily
Continue IV iron infusions last dose tomorrow
Continue heparin since she has no evidence of GI bleed
She also has constipation noted on x-ray she did have a large bowel movement 02/24 x 2 after milk of molasses enema and when able to tolerate p.o. can start MiraLAX
Subjective
Subjective
Date of Service: February 26, 2025
Patient denies pain, distention is resolved. She is hungry and would like to eat. She also feels much better after she had that large bowel movement after the milk of molasses enema 02/24
Objective
Data Reviewed
Laboratory Data:
Laboratory Results
02/26/25 03:28
02/26/25 03:28
Laboratory Results
APTT 81.6 Sec (23.4-35.0) H 02/26/25 03:28
Phosphorus 3.4 mg/dl (2.5-4.5) 02/26/25 03:28
Magnesium 2.2 mg/dl (1.6-2.3) 02/26/25 03:28
Total Bilirubin 0.6 mg/dl (0.2-1.3) 02/26/25 03:28
AST 21 U/L (14-36) 02/26/25 03:28
ALT 17 U/L (0-35) 02/26/25 03:28
Alkaline Phosphatase 52 U/L (38-126) 02/26/25 03:28
Vital Signs and I&O:
Vital Signs
Temp Pulse Resp BP Pulse Ox
98.8 F 914 20 145/89 97
02/26/25 07:50 02/26/25 09:13 02/26/25 08:09 02/26/25 09:13 02/26/25 08:09
I&O
02/25/25 02/26/25 02/27/25
06:59 06:59 06:59
Intake Total 569.6 / 569.6 1170.6 / 1170.6
Output Total 1800 / 1800 1810 / 1810
Balance -1230.4 / -1230.4 -639.4 / -639.4
Physical Exam
Physical Exam
Cardiology: Irregular Rate/Rhythm
Pulmonary: Clear
GI: Soft, Non Distended, Non Tender and Normal Bowel Sounds
--- NOTE | 2025-02-26 11:04 | W.PN.HOSP.TC ---
Today's Communication/Plan
-
IV amiodarone
IV diuresis
IV Lopressor
Amiodarone per cardiology
Upper GI series tomorrow
Assessment / Plan
Assessment / Plan
General: No Apparent Distress and Conversant; Negative Slurred Speech
HEENT: Normocephalic, Atraumatic, Moist Mucous Membranes and Oxygen
Respiratory: Clear to Auscultation (Anterior)
Cardiac: S1/S2, regular irregular. Heart rate 83 on telemetry looks normal sinus rhythm
GI: Soft, Nontender, Normal Bowel Sounds, Distended imrpoved and Other (NG tube noted); Negative Organomegaly
Rectal: Deferred by Provider
Musculoskeletal: No Clubbing, No Cyanosis, Edema, Right Lower Extrem and Edema, Left Lower Extrem
Skin: Negative Rash
Neuro: Awake, AO x 3, No Motor Deficits and Nonfocal/Grossly Intact
Psych: Calm
Acute on Chronic HFpEF
-Monitor Is&Os and Daily Weights
-Agree with Lasix 40 mg twice daily. Requires invasive monitoring
-Monitor blood pressure closely. Surrounding soft blood pressure at times.
-Monitor creatinine closely. Elevated proBNP noted. Significant urinary output. Losing weight.
Paroxysmal atrial fibrillation with rapid ventricular response
- Remains on IV amiodarone. Dose adjustment per cardiology. Currently on 1 mg dose
- Digoxin discontinued. IV Lopressor adjusted to 0.5 mg Q6.
- Started on IV heparin as Eliquis remains on hold.
- Converted to normal sinus rhythm. Monitor heart rate.
Gastric Outlet Obstruction
Severe constipation
-Abd/Pelvis CT scan raises concern for small mass along gastric antrum vs duodenum
-NGT placed in ED
-Continue NPO
-Monitor NG tube output.
-Start PPI
-Abdominal distention improving
- Upper GI series Thursday
-Bowel movement status post enema
COPD, no acute exacerbation
Chronic Hypoxia respiratory failure
-Continue supplemental oxygen at 3L via nasal cannula
-Continue Anoro Ellipta
Bipolar Disorder
-Continue Risperdal oral disintegrating tablet if possible
-Hold Depakote until able to resume oral meds
Sub clinical hypothyroidism
Status post thyroidectomy
- Once able to take p.o. may need to adjust Synthroid dose
Iron deficiency anemia
- IV iron started
DVT proph: IV heparin
Code Status: Full Code
Anticipated Discharge: > 48 hours
Subjective/Interval History
-
Date of Service: February 26, 2025
States of improvement in abdominal distention
Objective Data
-
Labs:
Laboratory Results
02/26/25
03:28
WBC 10.7
Hgb 10.1 L
Hct 31.2 L
Plt Count 241
APTT 81.6 H
Sodium 133 L
Potassium 3.8
Chloride 100
Carbon Dioxide 27
BUN 9
Creatinine 0.7
Glucose 85
Calcium 8.2 L
Total Bilirubin 0.6
AST 21
ALT 17
Alkaline Phosphatase 52
Vital Signs:
Vital Signs
Temp Pulse Resp BP Pulse Ox
98.8 F 91 23 138/86 93
02/26/25 07:50 02/26/25 10:00 02/26/25 10:00 02/26/25 10:00 02/26/25 10:00
I&O
02/25/25 02/26/25 02/27/25
06:59 06:59 06:59
Intake Total 569.6 / 569.6 1170.6 / 1170.6
Output Total 1800 / 1800 1810 / 1810
Balance -1230.4 / -1230.4 -639.4 / -639.4
Data Reviewed
-
Total Time Spent with Patient (in minutes): 55
[2025-02-26] MEDS: FERRLECIT 110 MG IV (13:23)
--- NOTE | 2025-02-26 14:15 | W.PN.CARDCBS ---
Today's Communication / Plan
-
Maintaining sinus rhythm
Continue amiodarone drip, IV Lopressor, IV heparin - can transition to oral when able to take p.o.
Impression / Plan
-
PCP: Praveena Hilliard
Cardiology: Dr. Aguero
EP: Dr. Bauer
Impression:
Presented with A-fib/typical flutter and RVR and acute HF 02/22/2025
Recent admission to [facility] for acute HF and rapid A-fib, loaded with digoxin 02/20/2025 until 02/21/2025
Recent admission to [facility] for abdominal distention, A-fib and acute HF 02/07/2025 until 02/10/2025
Recent admission to [facility] for A-fib and acute HF, likely had COVID just prior to this admission and had also been started on Tikosyn prior to this admission, 01/25/25 until 01/27/25
Recent admission to [facility] for newly diagnosed A-fib and acute HF 12/08/2024 until 12/14/2024
Acute HFpEF
Paroxysmal atrial fibrillation and typical flutter with RVR
Abnormal CT abdomen suggesting small enhancing mass along the wall of the gastric antrum 02/22/2025
MRI abdomen at [facility] that showed dilated stomach without mention of enhancing lesions, small pancreatic cysts and no evidence of biliary dilatation or choledocholithiasis 02/08/2025
s/p MRCP that was negative for CBD stone at [facility] 01/2025
NGT placed in ER 02/22/25
Oxygen dependent COPD
Former smoker, quit 07/2024
COVID infection 11/2024
s/p thyroidectomy, hypothyroidism
h/o HTN
Hyperlipidemia
Bipolar disorder
Echo 12/08/2024: [facility] study, EF 60 to 65%, enlarged RV with moderately reduced systolic function, severe RA/LA dilatation, trivial to mild MR, severe TR with PAP 50 mmHg, no AAS
DANIEL 12/12/2024: [facility] study, EF 60 to 65%, severely enlarged RV, no evidence of DIANNA thrombus, mild MR, mild to moderate TR with PAP 21 mmHg
RHC at [facility] on 12/14/2024: PCWP 19 with CI 2.5.
Plan:
Converted from rapid atrial flutter to sinus rhythm 02/25 630AM - remains in NSR
IV amiodarone to maintain sinus rhythm. Transition to PO when able. Remains NPO with NG tube in place.
IV lopressor w/ hold parameters
Digoxin stopped based on discussion with EP 02/24
Heparin drip with transition back to home Eliquis once able to take oral meds.
Decrease IV Lasix frequency to once daily at 40 mg
Follow renal function closely
Ideally would have standing weights
Echo 02/24 with NL biV size and function, NL PASP
Patient came to [facility] ER yesterday with acute HF and cardiology is now consulted. Patient was being evaluated in the cardiology office in the [place] yesterday, this was a new patient visit for EP consultation for persistent A-fib and consideration
of ablation. As noted above the patient has had 4 admissions to [facility] since November. It looks like patient was initially admitted to [facility] in November with A-fib as a new diagnosis and acute HF, patient had successful DANIEL/CV at that time, but recurred with
A-fib soon after. Patient was admitted to [facility] again at the end of December with recurrent A-fib and acute HF and on my review of [facility] records it appeared that in between her November admission and December admission she had COVID and was started on Tikosyn,
but still recurred with A-fib requiring admission 01/25/2025. Looks like patient was diuresed during that admission and was discharged to home on her usual dose of Tikosyn 250 mcg BID. Patient was admitted to [facility] again from 02/07/2025 until 02/10/2025
with chest pain that they treated as COPD and abdominal distention that led to MRI/MRCP of the abdomen that was negative for CBD stone and there is no mention of soft tissue masses in the stomach at that time, patient was again diuresed and
discharged to home. Patient was admitted to [facility] again 02/20/2025 until 02/21/2025 with recurrent A-fib and acute HF, during that admission they loaded her with digoxin and continued her usual dose of Tikosyn. It sounds as though the patient was
anxious for her outpatient EP evaluation and was discharged from the hospital 02/21/2025 and then came to our office at the [facility] on 02/22/2025 and acute HF and was referred to the ER.
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
Subjective
Date of Service: February 26, 2025
No acute overnight events. No cardiac complaints and reports that her lower extremity edema is significantly improved. Maintaining sinus rhythm by review of telemetry. Still with NG tube in place in the IMU.
Objective
Labs:
02/26/25 03:28
02/26/25 03:28
Labs
Hgb 10.1 g/dL (12.0-16.0) L 02/26/25 03:28
Hct 31.2 % (37.0-47.0) L 02/26/25 03:28
Plt Count 241 10^3/uL (130-400) 02/26/25 03:28
APTT 81.6 Sec (23.4-35.0) H 02/26/25 03:28
Sodium 133 mmol/L (135-145) L 02/26/25 03:28
Potassium 3.8 mmol/L (3.5-5.1) 02/26/25 03:28
BUN 9 mg/dl (7-17) 02/26/25 03:28
Creatinine 0.7 mg/dL (0.6-1.0) 02/26/25 03:28
Glucose 85 mg/dl (70-99) 02/26/25 03:28
Digoxin 1.0 ng/ml (0.8-2.0) 02/25/25 03:12
Vital Signs and I&O:
Vital Signs
Temp Pulse Resp BP Pulse Ox
99.1 F 93 23 133/90 93
02/26/25 11:00 02/26/25 13:23 02/26/25 10:00 02/26/25 13:23 02/26/25 10:00
Vital Signs
Temp Pulse Resp BP Pulse Ox
99.1 F 93 23 133/90 93
02/26/25 11:00 02/26/25 13:23 02/26/25 10:00 02/26/25 13:23 02/26/25 10:00
Intake & Output
02/24/25 02/25/25 02/26/25 02/27/25
06:59 06:59 06:59 06:59
Intake Total 440.4 / 440.4 569.6 / 569.6 1170.6 / 1170.6
Output Total 3900 / 3900 1800 / 1800 1810 / 1810
Balance -3459.6 / -3459.6 -1230.4 / -1230.4 -639.4 / -639.4
Physical Exam
Physical Exam
Gen: NAD, AAOx3
HEENT: NC/AT, sclera anicteric, NG tube to suction
Neck: No JVD
CV: RRR, NL s1/s2
Lungs: CTAB
Abd: S/ND
Ext: No LE edema
Skin: Warm, dry
Neuro: Non-focal
[2025-02-26] MEDS: CORDARONE 518 MG IV (14:45)
--- NOTE | 2025-02-26 15:47 | PTCARENOTE ---
Rec'd pt this AM. pt with minimal output in NGT. Good bowel sounds, reports having an appetite. HR remains stable.
--- NOTE | 2025-02-26 20:00 | PTCARENOTE ---
Assumed care of Pt from dayshift RN after change of shift report. Pt is AAOx3. NGT remains present and patent. Pt tolerating. bowel sounds present. pt states her appetite is returning. npo maintained. assessment as documented. call light in reach.
[2025-02-27] VITALS (19 sets, daily range): BP systolic 121–145; BP diastolic 72–97; BMI 19.5
[2025-02-27] MEDS: LOPRESSOR 2.5 MG IV ×4 (01:08→17:53)
[2025-02-27] MEDS: CORDARONE 518 MG IV ×2 (05:30→20:28)
[2025-02-27 05:40] LABS: Hematocrit 31.5 % (37.0-47.0); Hemoglobin 10.3 g/dL (12.0-16.0); Mean Corp Hgb Conc. 32.7 g/dL (33.0-37.0); Mean Corpuscular Volume 83.1 fL (81.0-99.0); Platelet Count 255 10^3/uL (130-400); Red Cell Dist. Width 17.4 % (11.5-14.5)
[2025-02-27 05:44] LABS: APTT 56.8 Sec (23.4-35.0)
[2025-02-27 06:07] LABS: ALT (SGPT) 16 U/L (0-35); AST (SGOT) 22 U/L (14-36); Albumin 3.4 g/dl (3.5-5.0); Alkaline Phosphatase 57 U/L (38-126); Blood Urea Nitrogen 9 mg/dl (7-17); Calcium 8.1 mg/dl (8.4-10.2); Carbon Dioxide 27 mmol/L (22-30); Chloride 98 mmol/L (98-107); Estimated Creatinine Clearance 61 ml/min; Glucose 83 mg/dl (70-99); Potassium 3.4 mmol/L (3.5-5.1); Sodium 132 mmol/L (135-145); Total Protein 6.1 g/dl (6.3-8.2); eGFR > 60.00
--- NOTE | 2025-02-27 07:35 | W.PN.GI.CBS2 ---
Today's Communication / Plan
-
UGI today
based on results EGD 02/28
Assessment / Plan
-
Pt is a 64yo with hx multiple medical problems including, afib/flutter newly diagnosed with newly started an DANIEL/CV, CHF, COPD with home O2, hypoxemia, bipolar disorder, overactive bladder, hypothyroidism thyroidectomy with recent prolonged
admissions at [facility]. Per patient she was admitted mid November til December with ICU admission with intubation, CHF, COPD exacerbation, afib (new), PNA, covid and psych med adjustment. Per cardiology noted she was noted with abdominal distention
and had MRI/MRCP during admission neg for stone and no mention of gastric mass but gastric distention . She now presents 02/22 from cardiology office. On admission she is noted with concern for heart failure, afib with RVR with HR in 140-150's,
and hypoxemia. CT A/p was completed with moderate left lobe PNA, severe gastric distention with question of enhancing mass along gastric antrum vs duodenum t/c EGD vs UGI. Asked to see for findings. Labs on admission notable for hbg 9 with iron
deficiency (chronic per patient), albumin 3.1, normal LFT's, proBNP 5980, TSH 17.4 with normal T4. In review with patient she admits to marked wt loss of over 30 lbs. She admits to dysphagia, GERD with vomiting variable amount over last 3 weeks
mostly bilious material with food at times. She has diffuse abdominal bloating and pressure. She also admits to diarrhea and constipation altenating with some blood and black in stools at times. No hx EGD and last colonoscopy 10 + years ago. She
admits to chronic NSAID use for years but changed to Tylenol about 1 year ago.
-abdominal distention with nausea/vomiting CT concern for marked severe gastric distention with question of enhancing mass along gastric antrum vs duodenum
-reported MRI 2 weeks ago with similar gastric distention at [facility]
-alternating diarrhea and constipation
-rectal bleeding red and blood in stools
-anemia with iron deficiency
-afib with RVR
-acute heart failure
-multiple recent admission at [facility] with with ICU admission with intubation, COPD exacerbation, CHF, afib (new), PNA, covid and psych med adjustment
other med problems:
COPD- O2 dependent
Former smoker recently quit
COVID infection 11/2024
s/p thyroidectomy, hypothyroidism TSH 17.4 and T4 normal 1.56
h/o HTN
Hyperlipidemia
Bipolar disorder
overactive bladder
PLAN:
-Etiology of severe gastric distention with obstruction/GOO most likely related to possible mass as noted on CT in the gastric antrum or duodenum versus PUD. Findings concerning for possible neoplasm given that she also had 30 pound weight loss
recently and also has iron deficiency anemia.
-Reviewed cardiology note and apparently she had an MRI with MRCP when she was recently admitted at [facility] she was noted to have small pancreatic cysts but no obvious pancreatic mass
-EGD when more stable likely 02/28, heart rate seems to be better controlled, noted input from cardiology, on heparin and amiodarone digoxin was discontinued
-upper GI with contrast through the NG tube today
-abdominal pain and distention have improved status post NG tube drainage, minimal drainage through the NG now
-Continue PPI twice daily
-Continue IV iron infusions last dose tomorrow
-Continue heparin since she has no evidence of GI bleed
-constipation noted on x-ray she did have a large bowel movement 02/24 x 2 after milk of molasses enema and when able to tolerate p.o. can start MiraLAX
Subjective
Subjective
Date of Service: February 27, 2025
She is anxious to have the NG tube removed, also hungry and would like to eat, abdominal pain has resolved, distention also resolved, currently in sinus rhythm on amiodarone and on heparin drip
Objective
Data Reviewed
Laboratory Data:
Laboratory Results
02/27/25 05:19
02/27/25 05:19
Laboratory Results
APTT 56.8 Sec (23.4-35.0) H 02/27/25 05:19
Phosphorus 3.4 mg/dl (2.5-4.5) 02/26/25 03:28
Magnesium 2.2 mg/dl (1.6-2.3) 02/26/25 03:28
Total Bilirubin 0.6 mg/dl (0.2-1.3) 02/27/25 05:19
AST 22 U/L (14-36) 02/27/25 05:19
ALT 16 U/L (0-35) 02/27/25 05:19
Alkaline Phosphatase 57 U/L (38-126) 02/27/25 05:19
MRI abdomen at [facility] that showed dilated stomach without mention of enhancing lesions, small pancreatic cysts and no evidence of biliary dilatation or choledocholithiasis 02/08/2025
s/p MRCP that was negative for CBD stone at [facility] 01/2025
Vital Signs and I&O:
Vital Signs
Temp Pulse Resp BP Pulse Ox
97.0 F 81 24 141/78 95
02/26/25 23:57 02/27/25 07:00 02/27/25 07:00 02/27/25 07:00 02/27/25 07:00
I&O
02/26/25 02/27/25 02/28/25
06:59 06:59 06:59
Intake Total 1170.6 / 1170.6 600 / 600
Output Total 1810 / 1810 1200 / 1200 400 / 400
Balance -639.4 / -639.4 -600 / -600 -400 / -400
Physical Exam
Physical Exam
Cardiology: Normal Sinus Rhythm
Pulmonary: Clear
GI: Soft, Non Distended, Non Tender and Normal Bowel Sounds
[2025-02-27] MEDS: SPIRIVA RESPIMAT 2.5 MCG 2 PUFF INH (07:49)
[2025-02-27] MEDS: STRIVERDI RESPIMAT 2 PUFF INH (07:49)
[2025-02-27] MEDS: LASIX 40 MG IV (09:23)
[2025-02-27] MEDS: PROTONIX IV 40 MG IV ×2 (09:24→20:29)
[2025-02-27] MEDS: NSS (PRESERVATIVE FREE) 10 ML IV ×2 (09:24→20:29)
[2025-02-27] MEDS: RISPERDAL M-TAB (ORALLY DISINTEGRATING) 0.5 MG PO ×2 (09:24→20:29)
--- NOTE | 2025-02-27 10:32 | W.PN.CARDCBS ---
Today's Communication / Plan
-
Continue IV heparin
Continue IV amiodarone
Hold furosemide
Supplement potassium
Transition to oral amiodarone and apixaban when able
Okay to proceed with upper GI today from cardiac standpoint
Impression / Plan
-
PCP: Praveena Hilliard
Cardiology: Dr. Aguero
EP: Dr. Bauer
Impression:
Presented with A-fib/typical flutter and RVR and acute HF 02/22/2025
Recent admission to [facility] for acute HF and rapid A-fib, loaded with digoxin 02/20/2025 until 02/21/2025
Recent admission to [facility] for abdominal distention, A-fib and acute HF 02/07/2025 until 02/10/2025
Recent admission to [facility] for A-fib and acute HF, likely had COVID just prior to this admission and had also been started on Tikosyn prior to this admission, 01/25/25 until 01/27/25
Recent admission to [facility] for newly diagnosed A-fib and acute HF 12/08/2024 until 12/14/2024
Acute HFpEF
Paroxysmal atrial fibrillation and typical flutter with RVR
Abnormal CT abdomen suggesting small enhancing mass along the wall of the gastric antrum 02/22/2025
MRI abdomen at [facility] that showed dilated stomach without mention of enhancing lesions, small pancreatic cysts and no evidence of biliary dilatation or choledocholithiasis 02/08/2025
s/p MRCP that was negative for CBD stone at [facility] 01/2025
NGT placed in ER 02/22/25
Oxygen dependent COPD
Former smoker, quit 07/2024
COVID infection 11/2024
s/p thyroidectomy, hypothyroidism
h/o HTN
Hyperlipidemia
Bipolar disorder
Echo 12/08/2024: [facility] study, EF 60 to 65%, enlarged RV with moderately reduced systolic function, severe RA/LA dilatation, trivial to mild MR, severe TR with PAP 50 mmHg, no AAS
DANIEL 12/12/2024: [facility] study, EF 60 to 65%, severely enlarged RV, no evidence of DIANNA thrombus, mild MR, mild to moderate TR with PAP 21 mmHg
RHC at [facility] on 12/14/2024: PCWP 19 with CI 2.5.
Plan:
From a cardiac standpoint, she seems stable.
.
She remains in normal sinus rhythm on IV amiodarone. Dofetilide has been stopped, digoxin has been stopped, she has as needed IV metoprolol
No evidence of heart failure on exam. Currently on IV furosemide 40 mg a day. If accurate she has lost about 13 kg. Will hold furosemide for now. Supplement potassium. Ultimately resume spironolactone, consider SGLT2 antagonist for HFpEF.
Currently undergoing evaluation for possible gastric outlet obstruction. No objections to GI series later today. She would be a suitable candidate from cardiac perspective for EGD if needed
Eventual plan will be oral amiodarone, apixaban, discontinuation of heparin and ultimately presumed pulsed field ablation and possible CTI ablation as well for atrial flutter
Echo 02/24 with NL biV size and function, NL PASP
Clinical summary: Patient came to [facility] ER yesterday with acute HF and cardiology is now consulted. Patient was being evaluated in the cardiology office [facility] yesterday, this was a new patient visit for EP consultation for persistent A-fib
and consideration of ablation. As noted above the patient has had 4 admissions to [facility] since November. It looks like patient was initially admitted to [facility] in November with A-fib as a new diagnosis and acute HF, patient had successful DANIEL/CV at that time,
but recurred with A-fib soon after. Patient was admitted to [facility] again at the end of December with recurrent A-fib and acute HF and on my review of [facility] records it appeared that in between her November admission and December admission she had COVID and was
started on Tikosyn, but still recurred with A-fib requiring admission 01/25/2025. Looks like patient was diuresed during that admission and was discharged to home on her usual dose of Tikosyn 250 mcg BID. Patient was admitted to [facility] again from
02/07/2025 until 02/10/2025 with chest pain that they treated as COPD and abdominal distention that led to MRI/MRCP of the abdomen that was negative for CBD stone and there is no mention of soft tissue masses in the stomach at that time, patient was
again diuresed and discharged to home. Patient was admitted to [facility] again 02/20/2025 until 02/21/2025 with recurrent A-fib and acute HF, during that admission they loaded her with digoxin and continued her usual dose of Tikosyn. It sounds as though
the patient was anxious for her outpatient EP evaluation and was discharged from the hospital 02/21/2025 and then came to our office at the [place] on 02/22/2025 and acute HF and was referred to the ER.
Progress Note - Financial Administrator
Subjective
Date of Service: February 27, 2025:
64-year-old woman admitted on February 23 with acute HFpEF in the setting of rapid atrial flutter. Patient with gastric outlet obstruction currently with NG tube. Was in a flutter at admission, switched to amiodarone and now in sinus rhythm.
Ultimate rhythm strategy will be for pulsed field ablation with or without CTI ablation
PMH: PAF/flutter, new since November 2024, with several cardioversions requiring dofetilide and being considered for PVI, hypertension, hyperlipidemia, bipolar, hypothyroidism status post thyroidectomy, COVID November 2024, oxygen dependent COPD
Meds: IV heparin, IV amiodarone, Risperdal, Spiriva, Striverdi, IV iron, pantoprazole, furosemide 40 mg IV daily, metoprolol IV 2.5 every 6
143/81, pulse 81, respiratory rate 22, afebrile, no distress, diminished breath sounds, regular rate and rhythm, no obvious murmurs, JVD okay, abdomen benign, not much edema weight is 48.2 kg, down 0.7 kg from yesterday and if accurate 13.5 kg from
admission
Echo 02/24/2025: EF 70-75%, normal RV, mild TR, mild MR, aortic valve normal
White count 11, hemoglobin 10.3, BUN and creatinine are 9 and 0.7, potassium is 3.4
Objective
Labs:
02/27/25 05:19
02/27/25 05:19
Labs
Hgb 10.3 g/dL (12.0-16.0) L 02/27/25 05:19
Hct 31.5 % (37.0-47.0) L 02/27/25 05:19
Plt Count 255 10^3/uL (130-400) 02/27/25 05:19
APTT 56.8 Sec (23.4-35.0) H 02/27/25 05:19
Sodium 132 mmol/L (135-145) L 02/27/25 05:19
Potassium 3.4 mmol/L (3.5-5.1) L 02/27/25 05:19
BUN 9 mg/dl (7-17) 02/27/25 05:19
Creatinine 0.7 mg/dL (0.6-1.0) 02/27/25 05:19
Glucose 83 mg/dl (70-99) 02/27/25 05:19
Digoxin 1.0 ng/ml (0.8-2.0) 02/25/25 03:12
Vital Signs and I&O:
Vital Signs
Temp Pulse Resp BP Pulse Ox
36.9 C 81 22 143/81 96
02/27/25 07:35 02/27/25 09:23 02/27/25 08:02 02/27/25 09:23 02/27/25 08:26
Vital Signs
Temp Pulse Resp BP Pulse Ox
36.9 C 81 22 143/81 96
02/27/25 07:35 02/27/25 09:23 02/27/25 08:02 02/27/25 09:23 02/27/25 08:26
Intake & Output
02/25/25 02/26/25 02/27/25 02/28/25
07:59 07:59 07:59 07:59
Intake Total 569.6 / 569.6 1170.6 / 1170.6 600 / 600
Output Total 1800 / 1800 1810 / 1810 1600 / 1600
Balance -1230.4 / -1230.4 -639.4 / -639.4 -1000 / -1000
Physical Exam
Physical Exam
See above
[2025-02-27] MEDS: HEPARIN 25000 UNITS/250 ML IV (11:34)
[2025-02-27] MEDS: KCL 270 MEQ IV (12:15)
[2025-02-27 12:48] LABS: APTT 114.2 Sec (23.4-35.0)
--- NOTE | 2025-02-27 13:27 | PTCARENOTE ---
Patient out of bed to chair, denying pain and or nausea when asked. NGT to LIS with scant light fuchs drainage. NGT irrigated per protocol. Patient had CHG bath and washed face, oral care completed. For radiology study this afternoon. Patient is NPO.
--- NOTE | 2025-02-27 15:32 | W.PN.HOSP.TC ---
Today's Communication/Plan
-
remains on NGT suction
maintained on heparin/amiodarone drip
Assessment / Plan
Assessment / Plan
Gastric Outlet Obstruction
Severe constipation
-Abd/Pelvis CT scan raises concern for small mass along gastric antrum vs duodenum
-NGT placed in ED
-Continue NPO
-Monitor NG tube output.
-Abdominal distention improving
-Upper GI series postponed for tomorrow by radio dept
-Bowel movement status post enema
Acute on Chronic HFpEF
-Monitor Is&Os and Daily Weights
-Lasix on hold
Paroxysmal atrial fibrillation with rapid ventricular response
- Remains on IV amiodarone. Dose adjustment per cardiology. Currently on 1 mg dose
- Digoxin discontinued. IV Lopressor adjusted to 0.5 mg Q6.
- Remains on IV heparin as Eliquis remains on hold.
- Converted to normal sinus rhythm. Monitor heart rate.
COPD, no acute exacerbation
Chronic Hypoxia respiratory failure
-Continue supplemental oxygen at 3L via nasal cannula
-Continue Anoro Ellipta
Bipolar Disorder
-Continue Risperdal oral disintegrating tablet if possible
-Hold Depakote until able to resume oral meds
Sub clinical hypothyroidism
Status post thyroidectomy
-Once able to take p.o. may need to adjust Synthroid dose
Iron deficiency anemia
- IV iron started
DVT proph: IV heparin
Code Status: Full Code
Anticipated Discharge: 24 - 48 hours
Subjective/Interval History
-
Date of Service: February 27, 2025
no complains overnight
denies of any new issue
Objective Data
-
Labs:
Laboratory Results
02/27/25 02/27/25 02/27/25
05:19 12:25 19:20
WBC 11.0 H
Hgb 10.3 L
Hct 31.5 L
Plt Count 255
APTT 56.8 H 114.2 H Pending
Sodium 132 L
Potassium 3.4 L
Chloride 98
Carbon Dioxide 27
BUN 9
Creatinine 0.7
Glucose 83
Calcium 8.1 L
Total Bilirubin 0.6
AST 22
ALT 16
Alkaline Phosphatase 57
Vital Signs:
Vital Signs
Temp Pulse Resp BP Pulse Ox
98.1 F 93 24 125/79 96
02/27/25 11:41 02/27/25 13:00 02/27/25 13:00 02/27/25 13:00 02/27/25 12:00
I&O
02/26/25 02/27/25 02/28/25
06:59 06:59 06:59
Intake Total 1170.6 / 1170.6 600 / 600 350 / 350
Output Total 1810 / 1810 1200 / 1200 1250 / 1250
Balance -639.4 / -639.4 -600 / -600 -900 / -900
Review of Systems
-
Respiratory: Reports No Symptoms
Cardiac: Reports No Symptoms
Abdomen/GI: Reports No Symptoms
Physical Exam
-
General: No Apparent Distress and Comfortable
HEENT: Other (NG tube in place - on suction); Negative Oxygen
Respiratory: Clear to Auscultation
Cardiac: Regular Rhythm and S1/S2; Negative Murmur or Rub
GI: Soft, Nontender, Nondistended and Normal Bowel Sounds
Musculoskeletal: No Edema
Neuro: Awake, Alert, Oriented, No Motor Deficits and Nonfocal/Grossly Intact
Psych: Calm
--- NOTE | 2025-02-27 15:46 | W.PN.UPDATE ---
Update Note
Progress Note Update
Reviewed x-ray NG tube is in place in the stomach okay to use for upper GI
--- NOTE | 2025-02-27 15:57 | PTCARENOTE ---
Patient out of bed today, NGT was to LIS. When patient went down to radiology for test, XRAY confirmed that the NGT was not in the stomach. Discussed with Dr. Martin. NGT repositioned back to 62, Xray confirmed placement. Patient is now back in
radiology for testing. Patient tolerated NGT repositioning without distress, denying pain when asked.
[2025-02-27] MEDS: FERRLECIT 110 MG IV (17:15)
[2025-02-27 20:18] LABS: APTT > 200 Sec (23.4-35.0)
--- NOTE | 2025-02-27 22:34 | PTCARENOTE ---
Caring for pt overnight. NGT in place to suction, minimal output. Denies N/V, only states she is hungry. VSS. Continues on heparin gtt and amio gtt. SR with PAC controlled 80bpm. Hep gtt was placed on hold for 2 hours and decreased d/t PTT >200.
bowel sounds present, no BM overnight so far. Denies pain or SOB. no assessment changes. Will monitor.
[2025-02-28] VITALS (23 sets, daily range): BP systolic 18–159; BP diastolic 73–99; BMI 18.6; BMI 19.5
[2025-02-28] MEDS: LOPRESSOR 2.5 MG IV ×5 (00:04→23:45)
[2025-02-28 04:46] LABS: Hematocrit 32.5 % (37.0-47.0); Hemoglobin 10.4 g/dL (12.0-16.0); Mean Corp Hgb Conc. 32.0 g/dL (33.0-37.0); Mean Corpuscular Volume 84.4 fL (81.0-99.0); Platelet Count 265 10^3/uL (130-400); Red Cell Dist. Width 18.1 % (11.5-14.5)
[2025-02-28 04:57] LABS: APTT 68.0 Sec (23.4-35.0)
[2025-02-28 05:06] LABS: Blood Urea Nitrogen 11 mg/dl (7-17); Calcium 8.3 mg/dl (8.4-10.2); Carbon Dioxide 25 mmol/L (22-30); Chloride 99 mmol/L (98-107); Estimated Creatinine Clearance 50 ml/min; Glucose 82 mg/dl (70-99); Magnesium 2.2 mg/dl (1.6-2.3); Potassium 3.6 mmol/L (3.5-5.1); Sodium 131 mmol/L (135-145); eGFR > 60.00
[2025-02-28] MEDS: SPIRIVA RESPIMAT 2.5 MCG 2 PUFF INH (07:29)
[2025-02-28] MEDS: STRIVERDI RESPIMAT 2 PUFF INH (07:29)
[2025-02-28] MEDS: RISPERDAL M-TAB (ORALLY DISINTEGRATING) 0.5 MG PO ×2 (08:25→21:22)
[2025-02-28] MEDS: PROTONIX IV 40 MG IV ×2 (08:26→21:22)
[2025-02-28] MEDS: NSS (PRESERVATIVE FREE) 10 ML IV ×2 (08:26→21:22)
--- NOTE | 2025-02-28 09:35 | PTCARENOTE ---
per nightshift RN, Heparin drip placed on hold for procedure at 0630
--- NOTE | 2025-02-28 09:48 | W.PN.HOSP.TC ---
Today's Communication/Plan
-
for EGD today
transfer med/surg
Assessment / Plan
Assessment / Plan
Gastric Outlet Obstruction
Severe constipation
-Abd/Pelvis CT scan raises concern for small mass along gastric antrum vs duodenum
-NGT placed in ED
-Continue NPO
-Upper GI series showing possible duodenal mass.
-Planned to go for EGD today
Acute on Chronic HFpEF
-Monitor Is&Os and Daily Weights
-Lasix on hold
Paroxysmal atrial fibrillation with rapid ventricular response
- Remains on IV amiodarone drip .
- Digoxin discontinued. IV Lopressor adjusted to 0.5 mg Q6.
- Remains on IV heparin as Eliquis remains on hold.
- Converted to normal sinus rhythm. Monitor heart rate.
COPD, no acute exacerbation
Chronic Hypoxia respiratory failure
-Continue supplemental oxygen at 3L via nasal cannula
-Continue Anoro Ellipta
Bipolar Disorder
-Continue Risperdal oral disintegrating tablet if possible
-can not take Depakote - changed to IV valproic acid 500mg q12h for now
Sub clinical hypothyroidism
Status post thyroidectomy
-Once able to take p.o. may need to adjust Synthroid dose
Iron deficiency anemia
- IV iron started
DVT proph: IV heparin
Code Status: Full Code
Anticipated Discharge: > 48 hours
Subjective/Interval History
-
Date of Service: February 28, 2025
no reported problems overnight
NGT in place
no nausea/vomiting
Objective Data
-
Labs:
Laboratory Results
02/28/25 02/28/25
04:25 11:30
WBC 9.5
Hgb 10.4 L
Hct 32.5 L
Plt Count 265
APTT 68.0 H Pending
Sodium 131 L
Potassium 3.6
Chloride 99
Carbon Dioxide 25
BUN 11
Creatinine 0.8
Glucose 82
Calcium 8.3 L
Vital Signs:
Vital Signs
Temp Pulse Resp BP Pulse Ox
98.0 F 73 22 138/92 93
02/27/25 23:25 02/28/25 09:00 02/28/25 09:00 02/28/25 09:00 02/28/25 09:00
I&O
02/27/25 02/28/25 03/01/25
06:59 06:59 06:59
Intake Total 600 / 600 500 / 500
Output Total 1200 / 1200 1825 / 1825
Balance -600 / -600 -1325 / -1325
Review of Systems
-
Respiratory: Reports No Symptoms
Cardiac: Reports No Symptoms
Abdomen/GI: Denies Nausea or Vomiting
Physical Exam
-
General: No Apparent Distress and Comfortable
HEENT: Other (NG tube in place - on suction); Negative Oxygen
Respiratory: Clear to Auscultation
Cardiac: Regular Rhythm and S1/S2; Negative Murmur or Rub
GI: Soft, Nontender and Nondistended
Musculoskeletal: No Edema
Neuro: Awake, Alert, Oriented, No Motor Deficits and Nonfocal/Grossly Intact
Psych: Calm
--- NOTE | 2025-02-28 11:09 | PTCARENOTE ---
Pt transported to GI lab.
--- NOTE | 2025-02-28 12:25 | W.PN.CARDCBS ---
Today's Communication / Plan
-
Remains in sinus rhythm. Await EGD today.
Hopefully after EGD can switch to oral amiodarone and oral Eliquis. For now continue IV amiodarone and Eliquis with IV Lopressor.
Has diuresed well. Remain off diuretics. Creatinine remains normal
Impression / Plan
-
PCP: Praveena Hilliard
Cardiology: Dr. Aguero
EP: Dr. Bauer
Impression:
Presented with A-fib/typical flutter and RVR and acute HF 02/22/2025
Recent admission to [facility] for acute HF and rapid A-fib, loaded with digoxin 02/20/2025 until 02/21/2025
Recent admission to [facility] for abdominal distention, A-fib and acute HF 02/07/2025 until 02/10/2025
Recent admission to [facility] for A-fib and acute HF, likely had COVID just prior to this admission and had also been started on Tikosyn prior to this admission, 01/25/25 until 01/27/25
Recent admission to [facility] for newly diagnosed A-fib and acute HF 12/08/2024 until 12/14/2024
Acute HFpEF
Paroxysmal atrial fibrillation and typical flutter with RVR
Abnormal CT abdomen suggesting small enhancing mass along the wall of the gastric antrum 02/22/2025
MRI abdomen at [facility] that showed dilated stomach without mention of enhancing lesions, small pancreatic cysts and no evidence of biliary dilatation or choledocholithiasis 02/08/2025
s/p MRCP that was negative for CBD stone at [facility] 01/2025
NGT placed in ER 02/22/25
Oxygen dependent COPD
Former smoker, quit 07/2024
COVID infection 11/2024
s/p thyroidectomy, hypothyroidism
h/o HTN
Hyperlipidemia
Bipolar disorder
Echo 12/08/2024: [facility] study, EF 60 to 65%, enlarged RV with moderately reduced systolic function, severe RA/LA dilatation, trivial to mild MR, severe TR with PAP 50 mmHg, no AAS
DANIEL 12/12/2024: [facility] study, EF 60 to 65%, severely enlarged RV, no evidence of DIANNA thrombus, mild MR, mild to moderate TR with PAP 21 mmHg
RHC at [facility] on 12/14/2024: PCWP 19 with CI 2.5.
Plan:
From a cardiac standpoint, she seems stable.
.
She remains in normal sinus rhythm on IV amiodarone. Dofetilide has been stopped, digoxin has been stopped, she has as needed IV metoprolol
No evidence of heart failure on exam. Weight is down significantly from hospitalization. Lasix currently on hold. Ultimately resume spironolactone, consider SGLT2 antagonist for HFpEF.
Plan for EGD today. Will await results and eventually switch over to oral amiodarone, and Eliquis. Will be possible candidate for ablation in the future.
Echo 02/24 with NL biV size and function, NL PASP
Clinical summary: Patient came to [facility] ER yesterday with acute HF and cardiology is now consulted. Patient was being evaluated in the cardiology office [facility] yesterday, this was a new patient visit for EP consultation for persistent A-fib
and consideration of ablation. As noted above the patient has had 4 admissions to [facility] since November. It looks like patient was initially admitted to [facility] in November with A-fib as a new diagnosis and acute HF, patient had successful DANIEL/CV at that time,
but recurred with A-fib soon after. Patient was admitted to [facility] again at the end of December with recurrent A-fib and acute HF and on my review of [facility] records it appeared that in between her November admission and December admission she had COVID and was
started on Tikosyn, but still recurred with A-fib requiring admission 01/25/2025. Looks like patient was diuresed during that admission and was discharged to home on her usual dose of Tikosyn 250 mcg BID. Patient was admitted to [facility] again from
02/07/2025 until 02/10/2025 with chest pain that they treated as COPD and abdominal distention that led to MRI/MRCP of the abdomen that was negative for CBD stone and there is no mention of soft tissue masses in the stomach at that time, patient was
again diuresed and discharged to home. Patient was admitted to [facility] again 02/20/2025 until 02/21/2025 with recurrent A-fib and acute HF, during that admission they loaded her with digoxin and continued her usual dose of Tikosyn. It sounds as though
the patient was anxious for her outpatient EP evaluation and was discharged from the hospital 02/21/2025 and then came to our office at the [facility] on 02/22/2025 and acute HF and was referred to the ER.
Progress Note - Ignition Specialist
Subjective
Date of Service: February 28, 2025
Overall feels well. She remains in sinus rhythm. For EGD today.
Objective
Labs:
02/28/25 04:25
02/28/25 04:25
Labs
Hgb 10.4 g/dL (12.0-16.0) L 02/28/25 04:25
Hct 32.5 % (37.0-47.0) L 02/28/25 04:25
Plt Count 265 10^3/uL (130-400) 02/28/25 04:25
APTT 68.0 Sec (23.4-35.0) H 02/28/25 04:25
Sodium 131 mmol/L (135-145) L 02/28/25 04:25
Potassium 3.6 mmol/L (3.5-5.1) 02/28/25 04:25
BUN 11 mg/dl (7-17) 02/28/25 04:25
Creatinine 0.8 mg/dL (0.6-1.0) 02/28/25 04:25
Glucose 82 mg/dl (70-99) 02/28/25 04:25
Digoxin 1.0 ng/ml (0.8-2.0) 02/25/25 03:12
Vital Signs and I&O:
Vital Signs
Temp Pulse Resp BP Pulse Ox
98.2 F 73 22 138/92 93
02/28/25 07:35 02/28/25 09:00 02/28/25 09:00 02/28/25 09:00 02/28/25 09:00
Vital Signs
Temp Pulse Resp BP Pulse Ox
98.2 F 73 22 138/92 93
02/28/25 07:35 02/28/25 09:00 02/28/25 09:00 02/28/25 09:00 02/28/25 09:00
Intake & Output
02/26/25 02/27/25 02/28/25 03/01/25
06:59 06:59 06:59 06:59
Intake Total 1170.6 / 1170.6 600 / 600 500 / 500
Output Total 1810 / 1810 1200 / 1200 1825 / 1825
Balance -639.4 / -639.4 -600 / -600 -1325 / -1325
Physical Exam
Physical Exam
GEN: No distress, awake, Ox3
HEENT: supple, anicteric, mmm
LUNGS: CTA, no wheezes/rales
CV: Reg, S1/S2, 1/6 syst LSB, no gallop
ABD: soft, BS+, NT/ND
EXT: No edema
NEURO: Gross non-focal
SKIN: No rash
[2025-02-28] MEDS: DEPACON 55 MG IV ×2 (13:26→21:22)
--- NOTE | 2025-02-28 13:48 | PN.CDI ---
CDI
- -
CDI:
Physician Documentation Request
Admit Date: 02/23/25 00:12
Dear Doctor Victor Manuel,
Clinical Indicators:
Patient admitted with gastric outlet obstruction & acute on chronic HFpEF.
NGT in place
02/25 -02/27 Lasix 40 mg IV given.
Sodium trend:
02/26/25 02/27/25 02/28/25
03:28 05:19 04:25
Sodium 133 L 132 L 131 L
Based on the above, could you clarify in the progress notes, the appropriate diagnosis, if significant, that supports the above abnormalities and additional evaluation, monitoring and/or treatment rendered:
Hyponatremia
Abnormal lab values, clinically insignificant
Other, please specify
Use of terms such as suspected, likely, concern for, or probable (associated with a specific diagnosis that is being evaluated, monitored, or treated as if it exists) are acceptable and can be coded in the inpatient setting, when documented at the
time of discharge.
Thank you,
FLAKITA Glynn RN
CDI Specialist
available via tiger text
Please use your independent medical judgment in providing your response.
--- NOTE | 2025-02-28 15:01 | CM ---
CM reviewed chart- ADC>48 hours
Pt planned for EGD today
Pt remains with NGT and plan to downgrade out of IMU today
CM to follow for out of bed activity post procedure
Pt is current with [facility] and has been accepted for [facility] on dc
Discharge Disposition - anticipate home with [facility]
[2025-02-28] MEDS: PACERONE 400 MG PO ×2 (15:09→21:21)
--- NOTE | 2025-02-28 17:06 | PTCARENOTE ---
Pt returned from GI lab. NGT removed, clear liquid diet ordered. PO meds now OK, Amio drip off, oral amio given. tolerating clears, now on tele.
[2025-02-28 20:52] LABS: APTT 40.0 Sec (23.4-35.0)
[2025-02-28] MEDS: HEPARIN 25000 UNITS/250 ML IV (21:19)
[2025-03-01] VITALS (8 sets, daily range): BP systolic 96–146; BP diastolic 58–91; PULSE 67–89; O2SAT 99–100; BMI 19.5
[2025-03-01 03:57] LABS: APTT 41.2 Sec (23.4-35.0)
[2025-03-01 04:08] LABS: Blood Urea Nitrogen 8 mg/dl (7-17); Calcium 8.2 mg/dl (8.4-10.2); Carbon Dioxide 27 mmol/L (22-30); Chloride 99 mmol/L (98-107); Estimated Creatinine Clearance 53 ml/min; Glucose 86 mg/dl (70-99); Potassium 3.7 mmol/L (3.5-5.1); Sodium 133 mmol/L (135-145); eGFR > 60.00
[2025-03-01 04:17] LABS: Hematocrit 30.8 % (37.0-47.0); Hemoglobin 9.9 g/dL (12.0-16.0); Mean Corp Hgb Conc. 32.1 g/dL (33.0-37.0); Mean Corpuscular Volume 85.1 fL (81.0-99.0); Platelet Count 293 10^3/uL (130-400); Red Cell Dist. Width 18.2 % (11.5-14.5)
[2025-03-01] MEDS: LOPRESSOR 2.5 MG IV (06:05)
[2025-03-01] MEDS: SPIRIVA RESPIMAT 2.5 MCG 2 PUFF INH (08:04)
[2025-03-01] MEDS: STRIVERDI RESPIMAT 2 PUFF INH (08:04)
[2025-03-01 09:30] LABS: APTT 41.2 Sec (23.4-35.0)
--- NOTE | 2025-03-01 10:15 | W.PN.CARDCBS ---
Addendum entered and electronically signed by Kev Nye MD 03/01/25 10:55:
I saw and examined the patient.
The Solar Sales Representative's note was reviewed and I agree with the note.
Comment: Briefly, 64-year-old woman past medical history of heart failure with preserved ejection fraction atrial fibrillation/flutter presenting in acute heart failure with atrial flutter with rapid ventricular response
Hospital course was complicated by bowel obstruction. Underwent EGD with GI yesterday is now able to take oral meds.
Initially in rapid atrial flutter but converted on IV amiodarone for the past several days
Would continue oral amiodarone and has been maintaining normal sinus rhythm
Transition heparin drip to Eliquis
Continue metoprolol for additional rate control
With IV diuresis she appears euvolemic on exam
Resume Aldactone
Start low-dose oral Lasix
Rest per Yvonne Eaton
Original Note:
Today's Communication / Plan
-
Will transition to Lasix, Toprol-XL and Eliquis PO
Impression / Plan
-
PCP: Praveena Hilliard
Cardiology: Dr. Aguero
EP: Dr. Bauer
Impression:
Presented with A-fib/typical flutter and RVR and acute HF 02/22/2025
Recent admission to [facility] for acute HF and rapid A-fib, loaded with digoxin 02/20/2025 until 02/21/2025
Recent admission to [facility] for abdominal distention, A-fib and acute HF 02/07/2025 until 02/10/2025
Recent admission to [facility] for A-fib and acute HF, likely had COVID just prior to this admission and had also been started on Tikosyn prior to this admission, 01/25/25 until 01/27/25
Recent admission to [facility] for newly diagnosed A-fib and acute HF 12/08/2024 until 12/14/2024
Acute HFpEF
Paroxysmal atrial fibrillation and typical flutter with RVR
Abnormal CT abdomen suggesting small enhancing mass along the wall of the gastric antrum 02/22/2025
MRI abdomen at [facility] that showed dilated stomach without mention of enhancing lesions, small pancreatic cysts and no evidence of biliary dilatation or choledocholithiasis 02/08/2025
s/p MRCP that was negative for CBD stone at [facility] 01/2025
NGT placed in ER 02/22/25
Oxygen dependent COPD
Former smoker, quit 07/2024
COVID infection 11/2024
s/p thyroidectomy, hypothyroidism
h/o HTN
Hyperlipidemia
Bipolar disorder
Echo 12/08/2024: HR study, EF 60 to 65%, enlarged RV with moderately reduced systolic function, severe RA/LA dilatation, trivial to mild MR, severe TR with PAP 50 mmHg, no
DANIEL 12/12/2024: HR study, EF 60 to 65%, severely enlarged RV, no evidence of DIANNA thrombus, mild MR, mild to moderate TR with PAP 21 mmHg
Echo 02/24/2025: EF 70 to 75%, normal RV size and function, mild TR with PAP 36 mmHg
RHC at [facility] on 12/14/2024: PCWP 19 with CI 2.5.
Plan:
-Patient admitted with rapid A-fib and then converted spontaneously to SR on 02/25/2025 with amiodarone loading. Telemetry reviewed by me on 03/01/2025 and remains in SR
-QTc 490 ms on my review of the ECG from 02/27/2025
-Patient received 6.3 grams amiodarone gtt that ran from 02/23/2025 until 02/27/2025. Patient then loaded with amiodarone 400 mg PO TID starting 02/28/2025. Plan will be to continue with amiodarone 200 mg BID for 1 month then reduce to once daily
thereafter. Discharge medication list adjusted and Rx E scribed by cardiology on 03/01/2025
-Outpatient dose of Eliquis 5 mg BID was held on admission due to possible gastric antrum mass, patient had upper endoscopy on 02/28/2025 and there is evidence of gastric stenosis at the pylorus that was biopsied and the duodenum was normal, there is
also evidence of esophageal ulcer in the midesophagus and a small hiatal hernia. Will resume Eliquis on 03/01/2025 AM, heparin d/c and Eliquis orders placed by me on 03/01/2025
-Outpatient doses of Tikosyn and digoxin were both stopped this admission
-Plan is for eventual ablation for ongoing rhythm control. Patient was not able to discuss ablation procedure with Dr. Bauer at her office visit 02/22/25 so we will work on scheduling another EP consult appointment to review ablation procedure
prior to scheduling patient for ablation.
-Patient has diuresed at least 11 pounds this admission, possibly more based on her recorded weights on the reviewed VS by me 03/01/2025. Patient reports this is the lowest weight she has had in months. Patient has had at least 4 admissions to [facility]
since November and then presented to [facility] for her 5th admission. Her records in [facility] were reviewed in detail and summarized above by me.
-Patient was diuresed with Lasix 40 mg IV daily and we will resume her usual dose of Lasix 20 mg PO daily on 03/02/25, orders placed by me
-Echo repeated this admission and EF was stable at 70 to 75%
-Patient is ordered clear liquid diet, resume outpatient doses of Toprol-XL 100 mg PO BID and spironolactone 25 mg daily. Orders placed by me
Clinical summary: Patient came to [facility] ER yesterday with acute HF and cardiology is now consulted. Patient was being evaluated in the cardiology office [facility] yesterday, this was a new patient visit for EP consultation for persistent A-fib
and consideration of ablation. As noted above the patient has had 4 admissions to [facility] since November. It looks like patient was initially admitted to [facility] in November with A-fib as a new diagnosis and acute HF, patient had successful DANIEL/CV at that time,
but recurred with A-fib soon after. Patient was admitted to [facility] again at the end of December with recurrent A-fib and acute HF and on my review of [facility] records it appeared that in between her November admission and December admission she had COVID and was
started on Tikosyn, but still recurred with A-fib requiring admission 01/25/2025. Looks like patient was diuresed during that admission and was discharged to home on her usual dose of Tikosyn 250 mcg BID. Patient was admitted to [facility] again from
02/07/2025 until 02/10/2025 with chest pain that they treated as COPD and abdominal distention that led to MRI/MRCP of the abdomen that was negative for CBD stone and there is no mention of soft tissue masses in the stomach at that time, patient was
again diuresed and discharged to home. Patient was admitted to [facility] again 02/20/2025 until 02/21/2025 with recurrent A-fib and acute HF, during that admission they loaded her with digoxin and continued her usual dose of Tikosyn. It sounds as though
the patient was anxious for her outpatient EP evaluation and was discharged from the hospital 02/21/2025 and then came to our office at the [facility] on 02/22/2025 and acute HF and was referred to the ER.
Progress Note - Clock And Watch Hands Dipper
Subjective
Date of Service: March 01, 2025
She feels better
Objective
Labs:
03/01/25 03:23
03/01/25 03:23
Labs
Hgb 9.9 g/dL (12.0-16.0) L 03/01/25 03:23
Hct 30.8 % (37.0-47.0) L 03/01/25 03:23
Plt Count 293 10^3/uL (130-400) 03/01/25 03:23
APTT 41.2 Sec (23.4-35.0) H 03/01/25 09:12
Sodium 133 mmol/L (135-145) L 03/01/25 03:23
Potassium 3.7 mmol/L (3.5-5.1) 03/01/25 03:23
BUN 8 mg/dl (7-17) 03/01/25 03:23
Creatinine 0.8 mg/dL (0.6-1.0) 03/01/25 03:23
Glucose 86 mg/dl (70-99) 03/01/25 03:23
Digoxin 1.0 ng/ml (0.8-2.0) 02/25/25 03:12
Vital Signs and I&O:
Vital Signs
Temp Pulse Resp BP Pulse Ox
97.1 F 84 16 133/87 97
03/01/25 07:45 03/01/25 07:45 03/01/25 07:45 03/01/25 07:45 03/01/25 07:45
Vital Signs
Temp Pulse Resp BP Pulse Ox
97.1 F 84 16 133/87 97
03/01/25 07:45 03/01/25 07:45 03/01/25 07:45 03/01/25 07:45 03/01/25 07:45
Intake & Output
02/27/25 02/28/25 03/01/25 03/02/25
06:59 06:59 06:59 06:59
Intake Total 600 / 600 500 / 500
Output Total 1200 / 1200 1825 / 1825
Balance -600 / -600 -1325 / -1325
Physical Exam
Physical Exam
GEN: NAD
LUNGS: RA. No wheeze
CV: SR on tele
[2025-03-01] MEDS: PACERONE 400 MG PO ×3 (11:04→21:46)
[2025-03-01] MEDS: DEPACON 55 MG IV (11:04)
[2025-03-01] MEDS: LASIX 20 MG PO (11:07)
[2025-03-01] MEDS: RISPERDAL M-TAB (ORALLY DISINTEGRATING) 0.5 MG PO ×2 (11:07→21:45)
[2025-03-01] MEDS: ELIQUIS 5 MG PO ×2 (11:07→21:41)
[2025-03-01] MEDS: TOPROL XL 100 MG PO ×2 (11:07→21:41)
[2025-03-01] MEDS: PROTONIX IV 40 MG IV (11:09)
[2025-03-01] MEDS: NSS (PRESERVATIVE FREE) 10 ML IV (11:09)
--- NOTE | 2025-03-01 14:22 | W.PN.HOSP.TC ---
Addendum entered and electronically signed by Anupam Rush MD 03/02/25 08:26:
Hyponatremia - euvolemic
Original Note:
Today's Communication/Plan
-
see note
Assessment / Plan
Assessment / Plan
EGD 03/01
- Esophageal ulcer mid esophagus with no bleeding and no stigmata of recent bleeding. Biopsied. possible pill esophagitis
- LA Grade C esophagitis with no bleeding in mid esophagus.
- Small hiatal hernia.
- Gastric stenosis was found at the pylorus. Biopsied. Dilated. Dilated with a 12-13.5-15 mm balloon (to a maximum balloon size of 1 mm). adult endoscope traversed after dilatation.
- Normal examined duodenum.

Gastric Outlet Obstruction at pylorus
s/p balloon dilation
- Abd/Pelvis CT scan raises concern for small mass along gastric antrum vs duodenum
- NGT placed in ED
- Continue NPO
- Upper GI showed possible duodenal mass although EGD showed a pyloric stenosis which was dilated. See report above
- Patient started on clear liquid diet advancement per GI.
Esophageal ulcer
- changed to Protonix 40mg/bid
Acute on Chronic HFpEF
- Monitor Is&Os and Daily Weights
- Patient resumed on oral Lasix 20 mg daily
Paroxysmal atrial fibrillation with rapid ventricular response
- Patient has been taken off of IV amiodarone drip and transition to oral amiodarone.
- Also on Toprol xl 100mg/bid
- IV heparin has been switched to oral eliquis
COPD, no acute exacerbation
Chronic Hypoxia respiratory failure
-Continue supplemental oxygen at 3L via nasal cannula
-Continue Anoro Ellipta
Bipolar Disorder
-Continue Risperdal oral disintegrating tablet if possible
-resumed back deapkote
Sub clinical hypothyroidism
Status post thyroidectomy
-Once able to take p.o. may need to adjust Synthroid dose
Iron deficiency anemia
- IV iron started
DVT proph: Eliquis
Code Status: Full Code
Anticipated Discharge: Within 24 hours
Subjective/Interval History
-
Date of Service: March 01, 2025
Able to tolerate clear liquid diet
No significant abdominal pain/nausea/vomiting
No other issues reported
Objective Data
-
Labs:
Laboratory Results
03/01/25 03/01/25 03/01/25
03:23 09:12 16:30
WBC 10.1
Hgb 9.9 L
Hct 30.8 L
Plt Count 293
APTT 41.2 H 41.2 H Pending
Sodium 133 L
Potassium 3.7
Chloride 99
Carbon Dioxide 27
BUN 8
Creatinine 0.8
Glucose 86
Calcium 8.2 L
Vital Signs:
Vital Signs
Temp Pulse Resp BP Pulse Ox
98.9 F 107 20 123/86 98
03/01/25 11:35 03/01/25 11:35 03/01/25 11:35 03/01/25 11:35 03/01/25 11:35
I&O
02/28/25 03/01/25 03/02/25
06:59 06:59 06:59
Intake Total 500 / 500
Output Total 1824
Balance -1325 / -1325
Review of Systems
-
Respiratory: Reports No Symptoms
Cardiac: Reports No Symptoms
Abdomen/GI: Reports No Symptoms
Physical Exam
-
General: Comfortable
HEENT: Negative Oxygen
Respiratory: Clear to Auscultation
Cardiac: Regular Rhythm and S1/S2; Negative Murmur or Rub
GI: Soft, Nontender and Nondistended
Musculoskeletal: No Edema
Neuro: Awake, Alert, Oriented, No Motor Deficits and Nonfocal/Grossly Intact
Psych: Calm
--- NOTE | 2025-03-01 17:08 | W.PN.GI.CBS2 ---
Today's Communication / Plan
-
Advance to soft diet and if tolerates can DC in a.m.
Follow-up for repeat EGD with dilatation in 4 to 6 weeks
Assessment / Plan
-
Pt is a 64yo with hx multiple medical problems including, afib/flutter newly diagnosed with newly started an DANIEL/CV, CHF, COPD with home O2, hypoxemia, bipolar disorder, overactive bladder, hypothyroidism thyroidectomy with recent prolonged
admissions at [facility]. Per patient she was admitted mid November til December with ICU admission with intubation, CHF, COPD exacerbation, afib (new), PNA, covid and psych med adjustment. Per cardiology noted she was noted with abdominal distention
and had MRI/MRCP during admission neg for stone and no mention of gastric mass but gastric distention . She now presents 02/22 from cardiology office. On admission she is noted with concern for heart failure, afib with RVR with HR in 140-150's,
and hypoxemia. CT A/p was completed with moderate left lobe PNA, severe gastric distention with question of enhancing mass along gastric antrum vs duodenum t/c EGD vs UGI. Asked to see for findings. Labs on admission notable for hbg 9 with iron
deficiency (chronic per patient), albumin 3.1, normal LFT's, proBNP 5980, TSH 17.4 with normal T4. In review with patient she admits to marked wt loss of over 30 lbs. She admits to dysphagia, GERD with vomiting variable amount over last 3 weeks
mostly bilious material with food at times. She has diffuse abdominal bloating and pressure. She also admits to diarrhea and constipation altenating with some blood and black in stools at times. No hx EGD and last colonoscopy 10 + years ago. She
admits to chronic NSAID use for years but changed to Tylenol about 1 year ago.
-abdominal distention with nausea/vomiting CT concern for marked severe gastric distention with question of enhancing mass along gastric antrum vs duodenum
-reported MRI 2 weeks ago with similar gastric distention at [facility]
-alternating diarrhea and constipation
-rectal bleeding red and blood in stools
-anemia with iron deficiency
-afib with RVR
-acute heart failure
-multiple recent admission at [facility] with with ICU admission with intubation, COPD exacerbation, CHF, afib (new), PNA, covid and psych med adjustment
other med problems:
COPD- O2 dependent
Former smoker recently quit
COVID infection 11/2024
s/p thyroidectomy, hypothyroidism TSH 17.4 and T4 normal 1.56
h/o HTN
Hyperlipidemia
Bipolar disorder
overactive bladder
PLAN:
Gastric outlet obstruction status post EGD 02/28/2025 which showed pyloric stenosis and was dilated to 15 mm
Tolerating clear liquids will advance to soft diet
Will repeat EGD in 4 to 6 weeks for repeat dilatation
continue PPI twice daily
Added Carafate
Avoid NSAIDs
Was restarted on Eliquis 03/01, no bleeding currently
Also has severe constipation restarted her on MiraLAX and senna
Will follow-up as outpatient
GI will sign off and will be available as needed
Subjective
Subjective
Date of Service: March 01, 2025
Tolerating clear liquids without any abdominal pain or nausea or vomiting. She also denies any symptoms of chest pain or odynophagia. Restarted on Eliquis, no bowel movement, last bowel movement was on 02/24 after the milk of molasses enema
Objective
Data Reviewed
Laboratory Data:
Laboratory Results
03/01/25 03:23
03/01/25 03:23
Laboratory Results
APTT Cancelled 03/01/25 16:30
Phosphorus 3.4 mg/dl (2.5-4.5) 02/26/25 03:28
Magnesium 2.2 mg/dl (1.6-2.3) 02/28/25 04:25
Total Bilirubin 0.6 mg/dl (0.2-1.3) 02/27/25 05:19
AST 22 U/L (14-36) 02/27/25 05:19
ALT 16 U/L (0-35) 02/27/25 05:19
Alkaline Phosphatase 57 U/L (38-126) 02/27/25 05:19
Vital Signs and I&O:
Vital Signs
Temp Pulse Resp BP Pulse Ox
98.9 F 107 20 123/86 98
03/01/25 11:35 03/01/25 11:35 03/01/25 11:35 03/01/25 11:35 03/01/25 11:35
I&O
02/28/25 03/01/25 03/02/25
06:59 06:59 06:59
Intake Total 500 / 500
Output Total 1825 / 1825
Balance -1325 / -1325
Physical Exam
Physical Exam
Cardiology: Normal Sinus Rhythm and Murmur (Systolic murmur)
Pulmonary: Clear
GI: Soft, Non Distended, Non Tender and Normal Bowel Sounds
--- NOTE | 2025-03-01 17:31 | VATNOTE ---
Message sent to MD via [facility] to see if PICC line can be discontinued at this time. Awaiting response.
[2025-03-01] MEDS: MIRALAX 17 GRAMS PO (21:39)
[2025-03-01] MEDS: SENOKOT 17.2 MG PO (21:41)
[2025-03-01] MEDS: PROTONIX 40 MG PO (21:41)
[2025-03-01] MEDS: DEPAKOTE SPRINKLE 500 MG PO (21:42)
[2025-03-01] MEDS: CARAFATE SUSPENSION 1 GM PO (21:48)
[2025-03-02 03:00] VITALS: BP 95/59
[2025-03-02 05:36] LABS: Hematocrit 31.0 % (37.0-47.0); Hemoglobin 10.0 g/dL (12.0-16.0); Mean Corp Hgb Conc. 32.3 g/dL (33.0-37.0); Mean Corpuscular Volume 86.4 fL (81.0-99.0); Platelet Count 291 10^3/uL (130-400); Red Cell Dist. Width 18.9 % (11.5-14.5)
[2025-03-02 05:49] VITALS: BMI 19.6
[2025-03-02 06:02] LABS: Blood Urea Nitrogen 6 mg/dl (7-17); Calcium 8.2 mg/dl (8.4-10.2); Carbon Dioxide 29 mmol/L (22-30); Chloride 100 mmol/L (98-107); Estimated Creatinine Clearance 47 ml/min; Glucose 86 mg/dl (70-99); Potassium 4.3 mmol/L (3.5-5.1); Sodium 135 mmol/L (135-145); eGFR > 60.00
[2025-03-02 07:40] VITALS: BP 98/66
[2025-03-02] MEDS: STRIVERDI RESPIMAT 2 PUFF INH (07:54)
[2025-03-02] MEDS: SPIRIVA RESPIMAT 2.5 MCG 2 PUFF INH (07:54)
--- NOTE | 2025-03-02 08:37 | W.PN.CARDCBS ---
Addendum entered and electronically signed by Brennen Carlos MD 03/02/25 13:41:
64-year-old woman admitted with acute HFpEF on February 23 with rapid atrial flutter, converted to sinus rhythm after stopping dofetilide and starting amiodarone, concerns regarding gastric outlet obstruction
PMH: COPD, COVID November 2024, hypertension, hyperlipidemia, bipolar, paroxysmal/persistent atrial fibrillation with HFpEF
Current meds: Risperidone 0.5 mg twice daily, Spiriva, Striverdi, amiodarone 400 3 times daily, metoprolol ER 100 mg twice daily, apixaban 5 mg twice daily, spironolactone 25 mg a day, furosemide 20 mg daily, Depakote, Carafate, pantoprazole,
polyethylene, Senokot
98/66, pulse 58, respiratory rate 16, afebrile, looks well lungs relatively clear, regular rate and rhythm, extremities without edema
EGD 02/28/2025: Esophageal ulcer, nonbleeding, pyloric stenosis traversed with pediatric scope, dilated, then adult scope
Impression:
Stable
Plan:
Okay for discharge,
Decrease amiodarone to 200 mg twice daily.
Original Note:
Today's Communication / Plan
-
maintaining NSR
has EP f/u scheduled
Impression / Plan
-
PCP: Praveena Hilliard
Cardiology: Dr. Aguero
EP: Dr. Bauer
Impression:
Presented with A-fib/typical flutter and RVR and acute HF 02/22/2025
Recent admission to [facility] for acute HF and rapid A-fib, loaded with digoxin 02/20/2025 until 02/21/2025
Recent admission to [facility] for abdominal distention, A-fib and acute HF 02/07/2025 until 02/10/2025
Recent admission to [facility] for A-fib and acute HF, likely had COVID just prior to this admission and had also been started on Tikosyn prior to this admission, 01/25/25 until 01/27/25
Recent admission to [facility] for newly diagnosed A-fib and acute HF 12/08/2024 until 12/14/2024
Acute HFpEF
Paroxysmal atrial fibrillation and typical flutter with RVR
Abnormal CT abdomen suggesting small enhancing mass along the wall of the gastric antrum 02/22/2025
MRI abdomen at [facility] that showed dilated stomach without mention of enhancing lesions, small pancreatic cysts and no evidence of biliary dilatation or choledocholithiasis 02/08/2025
s/p MRCP that was negative for CBD stone at [facility] 01/2025
NGT placed in ER 02/22/25
Oxygen dependent COPD
Former smoker, quit 07/2024
COVID infection 11/2024
s/p thyroidectomy, hypothyroidism
h/o HTN
Hyperlipidemia
Bipolar disorder
Echo 12/08/2024: HR study, EF 60 to 65%, enlarged RV with moderately reduced systolic function, severe RA/LA dilatation, trivial to mild MR, severe TR with PAP 50 mmHg, no
DANIEL 12/12/2024: HR study, EF 60 to 65%, severely enlarged RV, no evidence of DIANNA thrombus, mild MR, mild to moderate TR with PAP 21 mmHg
Echo 02/24/2025: EF 70 to 75%, normal RV size and function, mild TR with PAP 36 mmHg
RHC at [facility] on 12/14/2024: PCWP 19 with CI 2.5.
Plan:
-Patient admitted with rapid A-fib and then converted spontaneously to SR on 02/25/2025 with amiodarone loading. Telemetry reviewed by me on 03/02/2025 and remains in SR, HRs 60s-70s
-QTc 490 ms on ECG from 02/27/2025
-Patient received 6.3 grams amiodarone gtt that ran from 02/23/2025 until 02/27/2025. Patient then loaded with amiodarone 400 mg PO TID starting 02/28/2025. Plan will be to continue with amiodarone 200 mg BID for 1 month then reduce to once daily
thereafter. Discharge medication list adjusted and Rx E scribed by cardiology on 03/01/2025
-Outpatient dose of Eliquis 5 mg BID was held on admission due to possible gastric antrum mass, patient had upper endoscopy on 02/28/2025 and there is evidence of gastric stenosis at the pylorus that was biopsied and the duodenum was normal, there is
also evidence of esophageal ulcer in the midesophagus and a small hiatal hernia.
Eliquis resumed 03/01/2025 AM, Hgb stable 10
-Outpatient doses of Tikosyn and digoxin were both stopped this admission
-Plan is for eventual ablation for ongoing rhythm control. Patient was not able to discuss ablation procedure with Dr. Bauer at her office visit 02/22/25 and has appointment with him on 03/14/2025 at 2:40 pm to review ablation procedure prior to
scheduling patient for ablation.
-Patient has diuresed at least 10 pounds this admission, possibly more based on her recorded weights. Patient reports this is the lowest weight she has had in months.
-Patient has had at least 4 admissions to [facility] since November and then presented to [facility] for her 5th admission. Her records in [place] were reviewed in detail and summarized above
-Patient was diuresed with Lasix 40 mg IV daily and we will resume her usual dose of Lasix 20 mg PO daily on 03/02/25, orders placed by me
-Echo repeated this admission and EF was stable at 70 to 75%
-Patient is ordered soft diet, resumed outpatient doses of Toprol-XL 100 mg PO BID and spironolactone 25 mg daily
Clinical summary: Patient came to [facility] ER yesterday with acute HF and cardiology is now consulted. Patient was being evaluated in the cardiology office in [facility] yesterday, this was a new patient visit for EP consultation for persistent A-fib
and consideration of ablation. As noted above the patient has had 4 admissions to [facility] since November. It looks like patient was initially admitted to [facility] in November with A-fib as a new diagnosis and acute HF, patient had successful DANIEL/CV at that time,
but recurred with A-fib soon after. Patient was admitted to [facility] again at the end of December with recurrent A-fib and acute HF and on my review of [facility] records it appeared that in between her November admission and December admission she had COVID and was
started on Tikosyn, but still recurred with A-fib requiring admission 01/25/2025. Looks like patient was diuresed during that admission and was discharged to home on her usual dose of Tikosyn 250 mcg BID. Patient was admitted to [facility] again from
02/07/2025 until 02/10/2025 with chest pain that they treated as COPD and abdominal distention that led to MRI/MRCP of the abdomen that was negative for CBD stone and there is no mention of soft tissue masses in the stomach at that time, patient was
again diuresed and discharged to home. Patient was admitted to [facility] again 02/20/2025 until 02/21/2025 with recurrent A-fib and acute HF, during that admission they loaded her with digoxin and continued her usual dose of Tikosyn. It sounds as though
the patient was anxious for her outpatient EP evaluation and was discharged from the hospital 02/21/2025 and then came to our office at the [place] on 02/22/2025 and acute HF and was referred to the ER.
Progress Note - [employer]el [employer]er
Subjective
Date of Service: March 02, 2025
feels well
remains in NSR
no SOB
back on oral meds
Objective
Labs:
03/02/25 05:24
03/02/25 05:24
Labs
Hgb 10.0 g/dL (12.0-16.0) L 03/02/25 05:24
Hct 31.0 % (37.0-47.0) L 03/02/25 05:24
Plt Count 291 10^3/uL (130-400) 03/02/25 05:24
APTT Cancelled 03/01/25 16:30
Sodium 135 mmol/L (135-145) 03/02/25 05:24
Potassium 4.3 mmol/L (3.5-5.1) 03/02/25 05:24
BUN 6 mg/dl (7-17) L 03/02/25 05:24
Creatinine 0.9 mg/dL (0.6-1.0) 03/02/25 05:24
Glucose 86 mg/dl (70-99) 03/02/25 05:24
Digoxin 1.0 ng/ml (0.8-2.0) 02/25/25 03:12
Vital Signs and I&O:
Vital Signs
Temp Pulse Resp BP Pulse Ox
97.7 F 58 16 95/59 98
03/02/25 03:00 03/02/25 07:57 03/02/25 07:57 03/02/25 03:00 03/02/25 07:57
Vital Signs
Temp Pulse Resp BP Pulse Ox
97.7 F 58 16 95/59 98
03/02/25 03:00 03/02/25 07:57 03/02/25 07:57 03/02/25 03:00 03/02/25 07:57
Intake & Output
02/28/25 03/01/25 03/02/25 03/03/25
06:59 06:59 06:59 06:59
Intake Total 500 / 500 1000 / 1000
Output Total 1825 / 1825
Balance -1325 / -1325 1000 / 1000
Physical Exam
Physical Exam
GEN: No distress, awake, Ox3
HEENT: supple, anicteric, mmm
LUNGS: CTA, no wheezes/rales
CV: Reg, S1/S2, no murmur
ABD: soft, BS+, NT/ND
EXT: No edema
NEURO: Gross non-focal
SKIN: No rash
[2025-03-02] MEDS: DEPAKOTE SPRINKLE 500 MG PO (09:08)
[2025-03-02] MEDS: ALDACTONE 25 MG PO (09:08)
[2025-03-02] MEDS: ELIQUIS 5 MG PO (09:08)
[2025-03-02] MEDS: TOPROL XL 100 MG PO (09:09)
[2025-03-02] MEDS: PROTONIX 40 MG PO (09:09)
[2025-03-02] MEDS: MIRALAX 17 GRAMS PO (09:09)
[2025-03-02] MEDS: PACERONE 400 MG PO (09:09)
[2025-03-02] MEDS: RISPERDAL M-TAB (ORALLY DISINTEGRATING) 0.5 MG PO (09:09)
[2025-03-02] MEDS: LASIX 20 MG PO (09:09)
[2025-03-02] MEDS: CARAFATE SUSPENSION 1 GM PO (09:12)
--- NOTE | 2025-03-02 11:42 | CM ---
Chart reviewed. Patient will d/c home today
Patient is current w/ Marek Freeman , updated clinicals sent in [facility] for resumption of services
Met w/ patient and sister bedside. IMM verbally reviewed, copy provided, copy on chart
No other CM needs at this time
Marek Freeman

Plan: Home today, [place] w/ Lydia
[2025-03-02] MEDS: FLUZONE HIGH-DOSE 2025-26 0.5 ML IM (11:46)
[2025-03-02 11:55] VITALS: BP 121/78
--- NOTE | 2025-03-02 13:09 | W.DCSUMMARY ---
Discharge Summary
Discharge Data
Date of Admission: 02/23/25
Date of Discharge: 03/02/25
-
Pending Results: No
Hospital Course
Discharging Physician : Dr Anupam Rush
Disposition : To home
Primary care physician : Dr Praveena Hilliard
Principal Discharge diagnosis :
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
Esophageal/gastric ulceration
Acute on chronic diastolic congestive heart failure
Paroxysmal atrial fibrillation with rapid ventricular rate
Chronic Discharge diagnosis :
Chronic obstructive pulmonary disease
Bipolar disorder
Subclinical hypothyroidism
Iron deficiency anemia
Physical examination:
HEENT: moist mucus membrane
Chest: Clear to auscultation
Heart: N s1/s2, RRR, no rub/mrumur/gallops
Abd: N BS, soft, nontender, nondistended, no organomegaly
Neuro: No motor deficit
Ext: No cyanosis, Clubbing, edema
Hospital Course :
Patient is a 64-year-old female with above-mentioned past medical history was came to ER after noted to having decompensated heart failure and A-fib in cardiology office. Patient was also noted to having significant abdominal distention with
initial question of possible ascites. CT abdomen pelvis done in ER showed a distended stomach with possible small mass around gastric antrum. An NG tube was placed for decompression of gastric content and gastroenterology was involved in care. GI
recommended a follow-up upper GI series which showed a possible duodenal mass. This was followed by an EGD which showed esophageal/gastric ulceration with pyloric stenosis which was dilated. Postprocedure patient was started on liquid diet and
advance to soft diet without problems . Patient also maintained on Carafate/Protonix.
From cardiology perspective patient was started on IV diuretics and was taken off of oral medication due to ongoing GI issues. Patient was maintained on IV heparin drip. For rhythm control patient was started on IV amiodarone drip which was later
transitioned to oral amiodarone drip. After improvement of GI issue patient was transition back to regimen of Toprol/amiodarone taper and Eliquis. Patient was put back on oral Lasix as well.
Post medical stabilization patient discharged home with plan for patient to follow-up in gastroenterology in office in 4 to 6 weeks.
Important imaging findings :
None
Procedure findings :
None
Discharge Plan
-
Patient Disposition: Home (Routine Discharge)
Discharge Diagnosis/Procedures: Gastric outlet obstruction, Esophageal/Gastric ulcers,
Condition: Fair
Diet: 2 Gram Sodium and Restrict fluids to 64 oz
Other Services: VN
Specialty Instructions: Weigh Daily- Call MD for wt gain/loss 3 lbs overnight/5 lbs in 1 week
Instructions: *[facility] Heart Failure Instructions
Referrals:
Praveena Hilliard DO [Family Provider, Family Practice] - in one week
Blanche Martin MD [Active, Gastroenterology] - in four to six weeks
Crow Bauer DO [Active, Cardiology] - 03/14/25 2:20 pm
Referral Note: Dr. Bauer's office scheduled an appt for you to be seen again to discuss ablation.
Additional Discharge Medication Instructions: - Stop taking Tikosyn (dofetilide), it has been replaced with amiodarone
- Start taking amiodarone 200 mg twice daily for 1 month and then reduce to 200 mg once daily thereafter. Two separate prescriptions have been sent to your pharmacy, one is for the twice daily dosing with no refills and the other is for the once
daily dosing with refills
- Stop taking digoxin
Prescriptions:
New
amiodarone 200 mg tablet
200 mg PO BID Qty: 60 0RF
Rx Instructions:
BID for 1 month then once daily thereafter
amiodarone 200 mg tablet
200 mg PO DAILY Qty: 30 11RF
Rx Instructions:
BID for 1 month then once daily thereafter
sucralfate 100 mg/mL Suspension
1 g PO ACHS Qty: 1000 0RF
metoprolol succinate [Toprol XL] 100 mg tablet extended release 24 hr
100 mg PO BID Qty: 60 1RF
Continued
atorvastatin 10 mg tablet
10 mg PO Daily
divalproex 500 mg tablet,delayed release (DR/EC)
500 mg PO BID
spironolactone 25 mg tablet
25 mg PO DAILY
pantoprazole 40 mg tablet,delayed release (DR/EC)
40 mg PO BID
furosemide 20 mg tablet
20 mg PO DAILY
polyethylene glycol 3350 17 gram/dose powder
17 g PO DAILYPRN PRN (Reason: constipation)
levothyroxine 112 mcg tablet
112 mcg PO DAILY
levalbuterol tartrate 45 mcg/actuation HFA aerosol inhaler
2 puff INHALATION Q8HPRN PRN (Reason: shortness of breath)
cholecalciferol (vitamin D3) 50 mcg (2,000 unit) Tablet
50 mcg PO DAILY
Eliquis 5 mg tablet
5 mg PO BID
umeclidinium-vilanterol 62.5-25 mcg/actuation blister with device
1 inh INHALATION DAILY
risperidone 0.5 mg tablet,disintegrating
0.5 mg PO Q12H
Discontinued
metoprolol succinate 100 mg tablet extended release 24 hr
100 mg PO BID
dofetilide 250 mcg capsule
250 mcg PO Q12
diltiazem HCl 300 mg capsule,extended release 24hr
300 mg PO DAILY
digoxin 125 mcg (0.125 mg) tablet
0.125 mg PO DAILY
Discharge Orders:
Discharge Patient (As Directed); Ordered 03/02/25
Ordered By: Anupam Rush
Discharge Date and Time
Print Language: LATVIAN
== END 2025-03-02 14:13 | disposition home health service (06) | DRG 380 ==
LOC: 4 WEST ACU 00:12
PROVIDERS: Hospitalist; Internal Medicine Gastroenterology; Nurse Practitioner Gerontology; Physician Assistant Medical; Radiology Diagnostic Radiology; Registered Nurse; Student in an Organized Health Care Education/Training Program; ADMITTING PHYSICIAN Hospitalist; ATTENDING PHYSICIAN Hospitalist; CONSULT PHYSICIAN Internal Medicine Gastroenterology; EMERGENCY PHYSICIAN Emergency Medicine; FAMILY PHYSICIAN Family Medicine; OTHER PHYSICIAN Surgery
PROC: 02HV33Z Insertion of Infusion Device into Superior Vena Cava, Percutaneous Approach (ICD-10-PCS; 2025-02-24)
PROC: 0D9670Z Drainage of Stomach with Drainage Device, Via Natural or Artificial Opening (ICD-10-PCS; 2025-02-27)
PROC: 0DB28ZX Excision of Middle Esophagus, Via Natural or Artificial Opening Endoscopic, Diagnostic (ICD-10-PCS; 2025-02-28)
PROC: 0DB78ZX Excision of Stomach, Pylorus, Via Natural or Artificial Opening Endoscopic, Diagnostic (ICD-10-PCS; 2025-02-28)
PROC: 0D768ZZ Dilation of Stomach, Via Natural or Artificial Opening Endoscopic (ICD-10-PCS; 2025-02-28)
PROC: 3E02340 Introduction of Influenza Vaccine into Muscle, Percutaneous Approach (ICD-10-PCS; 2025-03-02)
DX: K31.1 Adult hypertrophic pyloric stenosis (principal); I50.33 Acute on chronic diastolic (congestive) heart failure; I48.19 Other persistent atrial fibrillation; J44.0 Chronic obstructive pulmonary disease with (acute) lower respiratory infection; I48.92 Unspecified atrial flutter; J96.11 Chronic respiratory failure with hypoxia; E87.1 Hypo-osmolality and hyponatremia; K22.10 Ulcer of esophagus without bleeding; I11.0 Hypertensive heart disease with heart failure; I95.9 Hypotension, unspecified; F31.9 Bipolar disorder, unspecified; E89.0 Postprocedural hypothyroidism; K31.89 Other diseases of stomach and duodenum; I77.811 Abdominal aortic ectasia; K57.30 Diverticulosis of large intestine without perforation or abscess without bleeding; K44.9 Diaphragmatic hernia without obstruction or gangrene; D50.9 Iron deficiency anemia, unspecified; K21.9 Gastro-esophageal reflux disease without esophagitis; N32.81 Overactive bladder; K59.00 Constipation, unspecified; Z99.81 Dependence on supplemental oxygen; Z87.891 Personal history of nicotine dependence; Z79.01 Long term (current) use of anticoagulants; Z79.84 Long term (current) use of oral hypoglycemic drugs; Z79.890 Hormone replacement therapy; Z86.16 Personal history of COVID-19; Z79.1 Long term (current) use of non-steroidal anti-inflammatories (NSAID); Z79.899 Other long term (current) drug therapy; Z23 Encounter for immunization
CPT/HCPCS: 71045; 74018; 74177; 74240; 80048; 80053; 80162; 82248; 82607; 82728; 82746; 83540; 83550; 83735; 83880; 84100; 84134; 84439; 84443; 84478; 84484; 85025; 85027; 85730; 86803; 88305; 88342; 90662; 93005; 93306; 94640; 97162; 97166; C1726; G0008; J1160; J2916; Q9967